=== PATIENT | female | born 1935 | race Caucasian/White ===

== ENCOUNTER 2017-04-22 09:59 | Emergency (ER) | payer MEDICARE, OTHER ==
--- NOTE | 2017-04-22 11:05 | ER PHYSICIAN DOCUMENTATION ---
Physician Documentation [facility] Name:Elayne Rodgers Age:81 yrs Sex:Female :1935 Arrival Date:04/22/2017 Time:09:59 Bed6 Private MD:Kevin Quintero ED, John Disposition: 04/22/17 10:32 Discharged to Home/Self Care. Impression: Back Contusion. - Condition is Good. - Discharge Instructions: CONTUSION, Soft Tissue. - Prescriptions for Hydrocodone- Acetaminophen 5-325 mg Oral - take 1 tablet by ORAL route every 6 hours As needed; 15 tablet. - Medical Reconciliation form form. - Follow up: Kevin Quintero MD; When: 1 week; Reason: Continuance of care. - Problem is new. - Symptoms have improved. HPI: 04/22 10:49 This 81 yrs old Female presents to ER via Private Vehicle with complaints of jm Fall Injury. 10:49 Details of fall: The patient fell from an upright position, while walking. Onset: The jm symptom(s)/episode began/occurred just prior to arrival. Associated injuries: The patient sustained R mid back. Associated signs and symptoms: Pertinent negatives: abdominal pain, chest pain, nausea, Loss of consciousness: the patient experienced no loss of consciousness. Severity of symptoms: in the emergency department the symptoms are unchanged. Pt fell while turning around in he bathroom. She lost her balance and her back hit the toilet. . Historical: - Allergies: All Statins; - Home Meds: 1. gabapentin oral 2. Omeprazole Oral 3. Synthroid Oral 4. PRALUENT 5. aspirin 81 mg oral tab 1 tab once daily 6. Cymbalta oral 7. Zetia Oral - PMHx: Diarrhea (July 30, 2016); CVA; - Tetanus: < 10 years < 10 years. - Ebola Screening: : Patient negative for fever greater than or equal to 101.5 degrees Fahrenheit, and additional compatible Ebola Virus Disease symptoms. Patient denies exposure to infectious person. Patient denies travel to an Ebola-affected area in the 21 days before illness onset. No symptoms or risks identified at this time. . - Immunization history: Pneumococcal vaccine is up to date, Flu Vaccine < 1 year. - Social history: Smoking status: Patient states was never smoker of tobacco. ROS: 10:50 Back: Positive for injury or acute deformity, pain with movement, radiated pain. jm 10:50 MS/extremity: Negative for paresthesias. 10:50 Skin: Negative for ecchymosis, swelling. 10:50 Neuro: Negative for dizziness, headache, numbness, tingling. Exam: 10:50 Constitutional: The patient appears alert, awake, comfortable. jm 10:50 Neck: C-spine: appears grossly normal, Thyroid: appears normal, Trachea: is midline with no obvious abnormalities. 10:50 Respiratory: the patient does not display signs of respiratory distress, Respirations: normal, Breath sounds: are normal. 10:50 Back: pain, that is moderate, of the right subscapular area and right mid back, vertebral tenderness, is not appreciated. Vital Signs: 10:15 BP 152 / 75; Pulse 102; Resp 16; Temp 97.6; Pulse Ox 91% on R/A; Weight 61.69 kg; lc Height 5 ft. 1 in. (154.94 cm); Pain 8/10; 11:00 Pulse 96; Resp 16; Pulse Ox 91% ; Pain 6/10; lc 10:15 Body Mass Index 25.70 (61.69 kg, 154.94 cm) lc Ave Coma Score: 11:03 Eye Response: spontaneous(4). Verbal Response: oriented(5). Motor Response: obeys lc commands(6). Total: 15. Trauma Score (Adult): 11:03 Eye Response: spontaneous(1); Verbal Response: oriented(1); Motor Response: obeys lc commands(2); Systolic BP: > 89 mm Hg(4); Respiratory Rate: 10 to 29 per min(4); Ave Score: 15; Trauma Score: 12 MDM: 10:01 Patient medically screened. jm 10:51 Differential diagnosis: contusion, fracture. Data reviewed: vital signs, nurses notes, radiologic studies, and as a result, I will discharge patient. Test interpretation: by ED physician or midlevel provider: plain radiologic studies. Counseling: I had a detailed discussion with the patient and/or guardian regarding: the historical points, exam findings, and any diagnostic results supporting the discharge/admit diagnosis, radiology results, the need for outpatient follow up, with the patient's primary care provider. Counseling: I had a detailed discussion with the patient and/or guardian regarding: the need for outpatient follow up. ED course: No fx noted. Dx is contusion. 04/22 10:33 Order name: RIBS UNI W/[place] [id number] EDMS 04/22 15:56 Order name: RIBS UNI W/[place] [id number] EDMS Dispensed Medications: No medications were administered Signatures: Taylor Monroy RN RN Twan Burton MD MD jm
--- NOTE | 2017-04-22 11:05 | ER NURSING DOCUMENTATION ---
Nurse's Notes [facility] Name:Elayne Rodgers Age:81 yrs Sex:Female :1935 Arrival Date:04/22/2017 Time:09:59 Bed6 Private MD:Kevin Quintero Diagnosis:Back Contusion Presentation: 04/22 10:02 Acuity: CHAVEZ 2 10:32 Presenting complaint: Patient states: FELL IN BATHROOM AND HIT RIGHT BACK AREA ON THE TOILET. NO LOC OR NECK PAIN. [facility]O [facility] AND [facility] INTACT. NO SOB OR CHEST PAIN. Care prior to arrival: None. Mechanism of Injury: Fall GROUND LEVEL. Trauma event details: Injury occurred in the [facility] Injury occurred at home. Injury occurred April 22, 2017 Injury occurred at 09:00. 10:32 Method Of Arrival: Private Vehicle 10:37 Transition of care: Home. Historical: - Allergies: All Statins; - Home Meds: 1. gabapentin oral 2. Omeprazole Oral 3. Synthroid Oral 4. PRALUENT 5. aspirin 81 mg oral tab 1 tab once daily 6. Cymbalta oral 7. Zetia Oral - PMHx: Diarrhea (July 30, 2016); CVA; - Tetanus: < 10 years < 10 years. - Ebola Screening: : Patient negative for fever greater than or equal to 101.5 degrees Fahrenheit, and additional compatible Ebola Virus Disease symptoms. Patient denies exposure to infectious person. Patient denies travel to an Ebola-affected area in the 21 days before illness onset. No symptoms or risks identified at this time. . - Immunization history: Pneumococcal vaccine is up to date, Flu Vaccine < 1 year. - Social history: Smoking status: Patient states was never smoker of tobacco. Screenin:41 Infectious Disease Risk None. Abuse screen: Denies threats or abuse. Denies injuries lc from another. Nutritional screening: No deficits noted. 11:03 Tuberculosis screening: No symptoms or risk factors identified. Primary Survey: 10:36 Breathing/Chest: Breath sounds: clear, bilaterally. Circulation: Pulses: Skin color: lc pink. Assessment: 10:33 General: Appears in no apparent distress, well groomed, Behavior is cooperative. Pain: Complains of pain in right mid back Pain does not radiate. Pain At worst was 8 out of 10 on a pain scale. Quality of pain is described as throbbing, Pain began 2 hours ago Aggravated by increased activity. Neuro: Level of Consciousness is awake, alert, Oriented to person, place, time, event, Mule Developer are equal bilaterally Moves all extremities. Full function. Respiratory: Airway is patent Respiratory pattern is regular, symmetrical, Breath sounds are clear bilaterally. GI: Abdomen is flat, Abd is soft and non tender X 4 quads. Derm: Skin is pink, warm & dry. Musculoskeletal: Tenderness present in right mid back. 10:59 Reassessment: Patient appears in no apparent distress at this time. VSS, FEELS READY lc FOR DC WITH INSULATION INSTALLER, ENCOURAGED TO HAVE A CAREGIVER TONITE.. Vital Signs: 10:15 BP 152 / 75; Pulse 102; Resp 16; Temp 97.6; Pulse Ox 91% on R/A; Weight 61.69 kg; lc Height 5 ft. 1 in. (154.94 cm); Pain 8/10; 11:00 Pulse 96; Resp 16; Pulse Ox 91% ; Pain 6/10; lc 10:15 Body Mass Index 25.70 (61.69 kg, 154.94 cm) lc [place] Coma Score: 11:03 Eye Response: spontaneous(4). Verbal Response: oriented(5). Motor Response: obeys lc commands(6). Total: 15. Trauma Score (Adult): 11:03 Eye Response: spontaneous(1); Verbal Response: oriented(1); Motor Response: obeys lc commands(2); Systolic BP: > 89 mm Hg(4); Respiratory Rate: 10 to 29 per min(4); [place] Score: 15; Trauma Score: 12 ED Course: 09:59 Patient arrived in ED. ds 09:59 Kevin Quintero MD is Private Physician. ds 10:01 Twan Booth MD is Attending Physician. jm 10:01 Taylor Monroy, LEORA is Primary Nurse. lc 10:02 Triage completed. lc 10:17 Patient moved to radiology. marvin 10:31 Kevin Quintero MD is Referral Physician. jm 10:33 RIBS UNI W/[place] [id number] In Process Unspecified. EDMS 10:38 Patient moved back from radiology. marvin 10:41 Valuables Remains with patient Patient has correct armband on for positive lc identification. Placed in gown. Bed in low position. Call light in reach. Side rails up X2. Adult w/ patient. Ice pack to injury. Turned to left side. Administered Medications: No medications were administered Outcome: 10:32 Discharge ordered by . vasiliy 11:00 Discharged to home via wheelchair, INSULATION INSTALLER AND FRIEND jennifer 11:00 Condition: stable 11:00 Discharge Assessment: Patient awake, alert and oriented x 3. No cognitive and/or functional deficits noted. Patient verbalized understanding of disposition instructions. 11:00 Discharge instructions given to patient, aircraft riveter, Instructed on discharge instructions, follow up and referral plans. medication usage, TAKING DEEP BREATHS AND [facility] Demonstrated understanding of instructions, medications, Prescriptions given X 1. 11:04 Patient left the ED. Signatures: Dispatcher [employer] EDTaylor De La O RN RN lc Srot, Matilda, José Miguel Reg Twan Jimenez MD MD jm Abbott, Donna wong
--- NOTE | 2017-04-22 15:51 | RADIOLOGY REPORT ---
Views of the chest and the right ribs demonstrate the heart, vessels and lungs to be unremarkable. No infiltrate, fluid or pneumothorax is seen. No displaced rib fracture is identified. IMPRESSION: Unremarkable views of the chest and right ribs. No displaced injury is identified. Occult nondisplaced rib fractures are not excluded and may require further evaluation and/or followup for detection. MTDD
== END 2017-04-22 11:05 | disposition home or self-care (01) ==
LOC: ER 09:59
DX: S20.221A Contusion of right back wall of thorax, initial encounter (principal); W01.198A Fall on same level from slipping, tripping and stumbling with subsequent striking against other object, initial encounter; Y92.012 Bathroom of single-family (private) house as the place of occurrence of the external cause; Y93.01 Activity, walking, marching and hiking; Z86.73 Personal history of transient ischemic attack (TIA), and cerebral infarction without residual deficits; Z79.82 Long term (current) use of aspirin; Z79.899 Other long term (current) drug therapy
CPT/HCPCS: 71101; 99283

== ENCOUNTER 2017-04-23 09:22 | Inpatient (IN) | payer MEDICARE, OTHER ==
[2017-04-23] MEDS ORDERED: HOME MEDICATION LIST NEEDED 1 EA EACH MC ONE (10:33)
[2017-04-23 10:36] LABS: BASOPHIL# 0.1 X 10^3uL (0.0-0.1); BASOPHILS 0.6 % (0.0-2.0); EOSINOPHILS 0.8 % (0.0-6.0); EOSINOPHILS# 0.1 X 10^3uL (0.0-0.4); HEMATOCRIT 35.2 % (36.0-48.0); HEMOGLOBIN 11.5 g/dL (12.0-16.0); LYMPHOCYTES 15.4 % (20.0-40.0); LYMPHOCYTES# 1.3 X 10^3uL (0.8-3.8); MEAN CELL VOLUME 72.2 fL (80.0-100.0); MEAN CORPUS. HGB CONCENTRATION 32.8 g/dL (32.0-36.0); MEAN CORPUSCULAR HEMOGLOBIN 23.6 pg (29.0-35.0); MEAN PLATELET VOLUME 7.1 fL (7.4-10.4); MONOCYTES 9.6 % (2.0-10.0); MONOCYTES# 0.8 X 10^3uL (0.2-1.0); NEUTROPHILS 73.6 % (54.0-75.0); NEUTROPHILS# 6.2 X 10^3uL (2.6-6.7); PLATELET COUNT 267 X 10^3uL (130-440); RED BLOOD COUNT 4.87 X 10^6uL (4.20-6.10); WHITE BLOOD COUNT 8.5 X 10^3uL (3.9-10.7)
[2017-04-23] MEDS ORDERED: ONDANSETRON HCL 4 MG/2 ML VIAL IV PRN (10:36)
[2017-04-23] MEDS ORDERED: HYDROmorphone HCL 1 MG/ML SYR ONE (10:37)
[2017-04-23 10:40] LABS: BLOOD UREA NITROGEN 13 mg/dL (7-17); CALCIUM 9.2 mg/dL (8.4-10.2); CHLORIDE 103 mmol/L (98-107); CREATININE 0.6 mg/dL (0.5-1.0); EST GLOMERULAR FILTRATION RATE > 60 mL/min; GLUCOSE 112 mg/dL (70-100); POTASSIUM 3.4 mmol/L (3.5-5.1); SODIUM 140 mmol/L (137-145)
[2017-04-23] MEDS ORDERED: ONDANSETRON HCL 4 MG/2 ML VIAL ONE (10:40)
[2017-04-23 10:51] LABS: RED CELL DISTRIBUTION WIDTH 20.1 % (11.5-14.5)
--- NOTE | 2017-04-23 11:11 | CT REPORT ---
HISTORY: Back pain, fell yesterday COMPARISON: None. TECHNIQUE: This examination was performed using automated exposure control, adjustment of mA or kV according to patient size, and/or use of iterative reconstruction technique. Axial thin section images were obtai calin from L1 through S1 levels, with sagittal and coronal reformations. FINDINGS: The sagittal reconstructed images show minimal posterior subluxation of L1 on L2, and L2 on L3. Mild chronic appearing compression deformity at L4 is noted. No new compression deformity. An acute nondisplaced transverse process fracture on the right at L1 is noted. Nondisplaced spinous p rocess fracture noted at T12 and L1. No other fracture. There is a 12th rib fracture, on the right li kristy chronic. Significant degenerative change particularly from T12 through L2 is noted. There is at least moderate canal stenosis at L1-2 and L2-3. Paraspinal tissues are unremarkable, except for a large hiatal hernia measuring up to 7 cm in diamete r. IMPRESSION: Nondisplaced acute fracture of the right transverse process at L1. Nondisplaced spinous process fract ure at T12 and L1. Nondisplaced fracture of the right posterior 11th and 12th rib, possibly chronic at the 12th rib Significant degenerative change particularly from T12 through L2. Chronic appearing mild compression deformity at L4 is noted. Report called to Dr. Werner. Final Electronic Signature: This report was electronically signed by Braulio Espana MD on 04/23/2017 1 1:09 AM. arnaud /
--- NOTE | 2017-04-23 11:13 | ER NURSING DOCUMENTATION ---
Nurse's Notes [facility] Name:Elayne Rodgers Age:81 yrs Sex:Female :1935 Arrival Date:04/23/2017 Time:: BedMA Private MD:Kevin Quintero Diagnosis:Acute Back Pain-: s/p fall and contusion;Back Contusion;Rib Fracture, Closed, Two-: Right 11th and 12th non-displaced;Lumbar Vertebra Fracture w/o Spinal Cord Injury-: Acute L-1 Right non-displaced Transverse Spinus Process Fracture Presentation: 04/23 09:41 Presenting complaint: Patient states: fell in bathroom yesterday and struck her mid sc1 right back area on the toilet. Pt. had an aide from [employer] and she stated that pt. had had pain all night, not relieved by her pain meds and is having trouble walking due to pain. Transition of care: Home. 09:41 Method Of Arrival: Private Vehicle sc1 09:44 Acuity: CHAVEZ 3 sc1 Triage Assessment: 09:47 General: Appears in no apparent distress, well developed, well nourished, well groomed, sc1 Behavior is cooperative, pleasant. Pain: Complains of pain in lumbar area and right mid back. Historical: - Allergies: All Statins; - Home Meds: 1. gabapentin oral 2. Omeprazole Oral 3. Synthroid Oral 4. PRALUENT 5. aspirin 81 mg oral tab 1 tab once daily 6. Cymbalta oral 7. Zetia Oral 8. Vicodin - PMHx: Diarrhea (July 30, 2016); CVA; Back Contusion (April 22, 2017); - Ebola Screening: : Patient negative for fever greater than or equal to 101.5 degrees Fahrenheit, and additional compatible Ebola Virus Disease symptoms. Patient denies exposure to infectious person. Patient denies travel to an Ebola-affected area in the 21 days before illness onset. No symptoms or risks identified at this time. . - Immunization history: Pneumococcal vaccine is up to date, Flu Vaccine < 1 year. - Social history: Smoking status: Patient states was never smoker of tobacco. Patient/guardian denies using alcohol, street drugs, IV drugs, marijuana. Screenin:57 Infectious Disease Risk None. Abuse screen: Denies threats or abuse. Nutritional sc1 screening: No deficits noted. Vital Signs: 09:48 BP 145 / 90; Pulse 109; Resp 18; Temp 97.9; Pulse Ox 90% on R/A; Weight 61.69 kg; sc1 Height 5 ft. 1 in. (154.94 cm); Pain 8/10; 10:57 BP 144 / 85 (auto/); sc1 10:59 Pulse Ox 96% ; sc1 10:59 Pulse 112; sc1 09:48 Body Mass Index 25.70 (61.69 kg, 154.94 cm) sc1 [place] Coma Score: 10:54 Eye Response: spontaneous(4). Verbal Response: oriented(5). Motor Response: obeys cd commands(6). Total: 15. ED Course: 01:05 Patient moved back from CT. marvin 09:23 Patient arrived in ED. ds 09:23 Kevin Quintero MD is Private Physician. ds 09:39 Clair Martinez, LEORA is Primary Nurse. sc1 09:41 Patient moved to radiology. marvin 09:44 Triage completed. sc1 09:49 Notified ED Physician of patient's arrival and chief complaint. Dr. Werner notified. sc1 Allergy Band Placed Arm band placed on Bed in low position Call Light in Reach Gowned HOB Elevated Side rails up x2. X-ray done. X-ray ordered. 09:58 LUMBOSACRAL SPINE 2-3 VW [id number] In Process Unspecified. EDMS 10:10 Hemant Werner MD is Attending Physician. cd 10:[address] marvin 10:34 Inserted peripheral IV: 20 gauge in right antecubital area and blood collected. Missed sc1 attempts: 20 gauge X 1 in right antecubital area, Bleeding controlled, band aid applied, catheter tip intact. 10:35 Oxygen Oxygen administration via nasal cannula @ 2L/min. sc1 10:38 Kevin Quintero MD is Admitting Physician. cd 10:51 CAT SCAN; LUMBAR W/O CON [id number] In Process Unspecified. EDMS 10:52 Patient moved back from [address]. marvin Administered Medications: 10:33 Drug: Zofran 4 mg; Route: IVP; Infused Over: 2 mins; Site: right antecubital; sc1 11:04 Follow up: Response: No adverse reaction sc1 10:33 Drug: Dilaudid 0.25 mg; Route: IVP; Site: right antecubital; id1 11:03 Follow up: Response: No adverse reaction; Pain is decreased sc1 Outcome: 10:41 Decision to Admit by Provider. 11:12 Patient left the ED. id1 Signatures: Dispatcher [employer] Clair Castellon RN RN sc1 Matilda Oliveros, Hemant Rowland MD MD cd Abbott, Laura lea
--- NOTE | 2017-04-23 11:13 | ER PHYSICIAN DOCUMENTATION ---
Physician Documentation [facility] Name:Elayne Rodgers Age:81 yrs Sex:Female :1935 Arrival Date:04/23/2017 Time:: BedCT Private MD:Kevin Quintero ED, Chris Disposition: 04/23/17 10:41 Admit ordered for Kevin Quintero. Preliminary diagnosis are Acute Back Pain - : s/p fall and contusion, Back Contusion, Rib Fracture, Closed, Two - : Right 11th and 12th non-displaced, Lumbar Vertebra Fracture w/o Spinal Cord Injury - : Acute L-1 Right non-displaced Transverse Spinus Process Fracture. - Bed requested for Medical/Surgical. - Condition is Fair. - Problem is new. - Symptoms are unchanged. 23 HR OBS Yes HPI: 04/23 10:50 This 81 yrs old Female presents to ER via Private Vehicle with complaints of cd Fall Injury. 10:50 Details of fall: The patient fell from an upright position, while standing. Onset: The cd symptom(s)/episode began/occurred acutely, yesterday. Associated injuries: The patient sustained upper back injury, contusion, decreased range of motion, pain, pain with movement. Associated signs and symptoms: Pertinent negatives: abdominal pain, chest pain, incontinence, nausea, numbness, pelvic pain, shortness of breath, tingling, vomiting, Loss of consciousness: the patient experienced no loss of consciousness. Severity of symptoms: At their worst the symptoms were severe, a " 8" out of "10", in the emergency department the symptoms are unchanged. The patient has been recently seen at the [facility] Emergency Department, yesterday, by Dr. Twan Booth. Right Rib Series done and no rib fractures identified. Patient has had continued severe pain, lives alone, has difficulty ambulating because of pain and is unable to care for herself at home.. Historical: - Allergies: All Statins; - Home Meds: 1. gabapentin oral 2. Omeprazole Oral 3. Synthroid Oral 4. PRALUENT 5. aspirin 81 mg oral tab 1 tab once daily 6. Cymbalta oral 7. Zetia Oral 8. Vicodin - PMHx: Diarrhea (July 30, 2016); CVA; Back Contusion (April 22, 2017); - Ebola Screening: : Patient negative for fever greater than or equal to 101.5 degrees Fahrenheit, and additional compatible Ebola Virus Disease symptoms. Patient denies exposure to infectious person. Patient denies travel to an Ebola-affected area in the 21 days before illness onset. No symptoms or risks identified at this time. . - Immunization history: Pneumococcal vaccine is up to date, Flu Vaccine < 1 year. - Social history: Smoking status: Patient states was never smoker of tobacco. Patient/guardian denies using alcohol, street drugs, IV drugs, marijuana. ROS: 10:53 ENT: Negative for injury, pain, epistaxis and discharge. cd Neck: Negative for injury, pain, stiffness and swelling. Cardiovascular: Negative for chest pain, palpitations, edema and pleuritic pain. Respiratory: Negative for shortness of breath, dyspnea on exertion, cough, sputum production, wheezing, hemoptysis and pleuritic chest pain. Abdomen/GI: Negative for abdominal pain, nausea, vomiting, diarrhea, constipation, distension, melena, hematochezia and hematemesis. Skin: Negative for injury, rash, itching and discoloration. 10:53 Neuro: Negative for headache, weakness, numbness, tingling, and seizure. cd 10:53 Constitutional: Negative for poor PO intake. 10:53 Back: Positive for pain at rest, pain with movement, Negative for radiated pain. 10:53 MS/extremity: Negative for acute changes, injury or acute deformity. 10:53 All other systems are negative. Exam: Head/Face: Normocephalic, atraumatic. ENT: Nares patent. No nasal discharge, no septal abnormalities noted. Tympanic membranes are normal and external auditory canals are clear. Oropharynx with no redness, swelling, or masses, exudates, or evidence of obstruction, uvula midline. Mucous membranes moist. Neck: Trachea midline, no thyromegaly or masses palpated, and no cervical lymphadenopathy. Supple, full range of motion without nuchal rigidity, or vertebral point tenderness. No Meningismus. Chest/axilla: Normal chest wall appearance and motion. Nontender with no deformity. No lesions are appreciated. Cardiovascular: Regular rate and rhythm with a normal S1 and S2. No gallops, murmurs, or rubs. Normal PMI, no JVD. No pulse deficits. Respiratory: Lungs have equal breath sounds bilaterally, clear to auscultation and percussion. No rales, rhonchi or wheezes noted. No increased work of breathing, no retractions or nasal flaring. Abdomen/GI: Soft, non-tender, with normal bowel sounds. No distension or tympany. No guarding or rebound. No evidence of tenderness throughout. Skin: Warm, dry with normal turgor. Normal color with no rashes, no lesions, and no evidence of cellulitis. MS/ Extremity: Pulses equal, no cyanosis. Neurovascular intact. Full, normal range of motion. 10:54 Neuro: Awake and alert, GCS 15, oriented to person, place, time, and situation. cd Cranial nerves II-XII grossly intact. Motor strength 5/5 in all extremities. Sensory grossly intact. Cerebellar exam normal. Normal gait. 10:54 Constitutional: The patient appears alert, awake, non-diaphoretic, non-toxic, well developed, well nourished, anxious, in obvious distress, moderately distressed. 10:54 Back: pain, that is severe, of the right mid back, ROM is painful, with all movement, normal spinal alignment noted, CVA tenderness, that is mild, is noted on the right, vertebral tenderness, is appreciated at T11, T12, L1, L2 and L3. 10:54 Musculoskeletal/extremity: Extremities: all appear grossly normal, with no appreciated pain with palpation, ROM: no acute changes, Circulation is intact in all extremities. 10:54 Neuro: Orientation: is normal, Mentation: is normal, Cranial nerves: CN II- XII are normal as tested, Motor: is normal, Sensation: is normal. Vital Signs: 09:48 BP 145 / 90; Pulse 109; Resp 18; Temp 97.9; Pulse Ox 90% on R/A; Weight 61.69 kg; sc1 Height 5 ft. 1 in. (154.94 cm); Pain 8/10; 10:57 BP 144 / 85 (auto/); sc1 10:59 Pulse Ox 96% ; sc1 10:59 Pulse 112; sc1 09:48 Body Mass Index 25.70 (61.69 kg, 154.94 cm) ny1 Clarence Coma Score: 10:54 Eye Response: spontaneous(4). Verbal Response: oriented(5). Motor Response: obeys cd commands(6). Total: 15. MDM: 09:45 Data interpreted: Pulse oximetry: on room air is 90 %. Interpretation: normal. cd 09:50 Differential diagnosis: contusion, fracture, sprain, strain. cd 10:10 Patient medically screened. cd 10:30 Data reviewed: vital signs, nurses notes, old medical records, radiologic studies, cd plain films, and as a result, I will admit patient, prescribe pain medication, Dilaudid. 10:40 Physician consultation: Kevin Quintero MD was called at 10:32, was contacted at 10:32, cd regarding admission, to the floor, consult, patient's condition, need to evaluate the patient as soon as possible, and will see patient in inpatient room, shortly, later today. 10:55 Medication response: The patient's symptoms have improved, Dilaudid. cd 10:59 Counseling: I had a detailed discussion with the patient and/or guardian regarding: the cd historical points, exam findings, and any diagnostic results supporting the discharge/admit diagnosis, lab results, radiology results, the need for further work-up and treatment in the hospital. Response to treatment: the patient's symptoms have markedly improved after treatment, and as a result, I will admit patient. 04/23 10:43 Order name: BASIC METABOLIC PANEL; Complete Time: 10:58 EDW[facility] 04/23 10:56 Interpretation: Normal Except: POTASSIUM 3.4; Hypokalemia. 04/23 10:52 Order name: CBC AUTO DIF, MDIF/RMOR IF IND; Complete Time: 10:58 EDMS 04/23 10:56 Interpretation: Normal Except: HEMOGLOBIN 11.5; HEMATOCRIT 35.2; Anemia. 04/23 20:31 Order name: UA W/ MICRO -CULTURE IF IND ED[facility] 04/23 09:58 Order name: LUMBOSACRAL SPINE 2-3 VW [id number]; Complete Time: 10:58 EDW[facility] 04/23 10:57 Interpretation: Abnormal: Severe DDD, spurring, disc space narrowing and old Vertebral cd Spine fracture...awaiting Radiologist reading. 04/23 10:51 Order name: CAT SCAN; LUMBAR W/O CON [id number] ED[facility] 04/23 10:57 Interpretation: Abnormal: Severe DDD, spurring, disc space narrowing and old Vertebral cd Spine fracture...awaiting Radiologist reading. 04/23 17:48 Order name: LUMBOSACRAL SPINE 2-3 VW [id number] EDMS 04/23 10:16 Order name: Iv Saline Lock; Complete Time: 10: cd 04/23 10:34 Order name: Oxygen; Complete Time: 10:35 [facility] 04/23 10:34 Order name: Oxygen Sats; Complete Time: 10:35 [facility] Dispensed Medications: 10:33 Drug: Zofran 4 mg; Route: IVP; Infused Over: 2 mins; Site: right antecubital; [facility] 11:04 Follow up: Response: No adverse reaction [facility] 10:33 Drug: Dilaudid 0.25 mg; Route: IVP; Site: right antecubital; [facility] 11:03 Follow up: Response: No adverse reaction; Pain is decreased [facility] Signatures: Aidee Beth RN RN st Campbell, Sandy, RN RN [facility] Hemant Werner MD MD
--- NOTE | 2017-04-23 14:26 | RADIOLOGY REPORT ---
Four views of the lumbar spine are compared with prior films dated 12/17/2013. A 25% anterior compression deformity of L4 is old and unchanged. No new displaced fracture is identified. Marked degenerative disk disease is seen at T12-L1 and L1-L2, as evidenced by narrowing and osteophyte formation. There is associated approximately 5 mm of posterior subluxation of L1 on L2. Moderate disk space narrowing is seen at L2-3. The remainder of the disk spaces are maintained. The adjacent soft tissues appear unremarkable. IMPRESSION: Extensive chronic changes as described. No acute displaced injury is identified. Please see CT scan report of the same date. [facility]
[2017-04-23] MEDS: POLYETHYLENE GLYCOL 3350 17 GM POWD.PACK PO SCH (14:43)
[2017-04-23] MEDS: CYCLOBENZAPRINE HCL 10 MG TABLET PO PRN (14:46)
[2017-04-23] MEDS: HYDROmorphone HCL 1 MG/ML SYR IV PRN ×3 (14:46→23:19)
[2017-04-23] MEDS: PANTOPRAZOLE 40 MG TABLET PO SCH (18:51)
[2017-04-23 20:19] LABS: URINE MUCUS NONE SEEN (Up to 25%); URINE RBC NONE SEEN (0-5/hpf); URINE SQUAMOUS EPITHELIAL CELL NONE SEEN (<= 15/hpf); URINE WBC NONE SEEN (0-4/hpf)
[2017-04-23 20:29] LABS: URINE APPEARANCE CLOUDY; URINE COLOR YELLOW; URINE LEUKOCYTE ESTERASE TRACE (NEGATIVE); URINE NITRITE NEGATIVE (NEGATIVE)
[2017-04-23 20:30] LABS: URINE AMORPHOUS SEDIMENT >50%/lpf (Up to 25%); URINE BACTERIA NONE SEEN (<10/hpf); URINE BILIRUBIN NEGATIVE (NEGATIVE); URINE BLOOD TRACE (NEGATIVE); URINE GLUCOSE NORMAL (NEGATIVE); URINE KETONE NEGATIVE (NEGATIVE); URINE PROTEIN 30mg/dL (1+) (NEG - TRACE); URINE UROBILINOGEN 0.2mg/dL (Normal) (NEG-1mg/dL)
--- NOTE | 2017-04-23 21:16 | HISTORY & PHYSICAL ---
DATE OF ADMISSION: 04/23/17 ATTENDING PHYSICIAN: Kevin Quintero MD HISTORY OF PRESENT ILLNESS: At around 8:00 a.m. yesterday morning, this patient lost her balance in her bathroom and fell with her right posterior lateral chest against the toilet. She did not lose consciousness. She was brought to the Emergency Room that morning for evaluation. Plain x-rays failed to reveal any fractures to explain her right posterior lateral chest wall pain and low back pain. She was sent home with a trial of pain medications, but slept poorly and returned to the Emergency Room for re-evaluation. EMERGENCY ROOM COURSE TODAY: Showed a nondisplaced fracture of the transverse process of the L1 vertebra on the right. She also has 2 posterior rib fractures involving the right 11th and 12th rib. The 12th rib fracture appears that it may be chronic, although the patient does not have any history of recent falls other than yesterday morning. PAST MEDICAL HISTORY 1. Osteopenia. 2. Nocturnal hypoxia. 3. Gastroesophageal reflux disease. 4. Hypertension. 5. Hypothyroidism. 6. Vitamin D deficiency. 7. Hiatal hernia. 8. Anxiety disorder. 9. Spinal stenosis, lumbar. 10. Spinal stenosis, cervical with a history of previous surgery for this. 11. Recurrent major depression. 12. Familial hypercholesteremia. 13. Chronic lumbar radiculopathy, right worse than left. 14. Hyperreflexia of the legs, right worse than left, probably related to her previous spinal stenosis. 15. History of a ischemic cerebrovascular accident 10/2015. 16. Hyperglycemia. MEDICATIONS ON ADMISSION Praluent 75 mg/mL 1 mL sub.q every 2 weeks. Aspirin 81 mg enteric coated daily. Vitamin D3 1000 units daily. Duloxetine 30 mg daily. Zetia 10 mg daily. Gabapentin 300 mg b.i.d. Glucosamine 500 mg t.i.d. Levothyroxine 88 mcg daily. Omeprazole 20 mg twice daily. Tizanidine 2 mg b.i.d. PRN for muscle spasms. ALLERGIES: All statins cause myalgias. REVIEW OF SYSTEMS GENERAL: Fatigue, no fever or chills. RESPIRATORY: No cough or shortness of breath. Does have chest wall pain in the posterior lateral right lower side. CARDIOVASCULAR: Chest wall pain. No palpitations. GI: No abdominal pain, current constipation or diarrhea. : No dysuria. Has some chronic frequency. MUSCULOSKELETAL: Chest wall pain as described above. Some chronic low back pain. Walks slowly with a walker typically, but is having trouble doing any ambulation now. PHYSICAL EXAMINATION VITAL SIGNS: On admission included a temperature of 36.9, pulse 106, blood pressure 130/73, respiratory rate 20, O2 saturation was 99% on 2 liters. GENERAL: Alert and oriented x3 and a little groggy when I evaluated her at lunchtime on 04/23/17. HEENT: Oral mucosa was slightly dry. LUNGS: Clear with distant breath sounds. . HEART: Regular rate and rhythm with no murmur. ABDOMEN: Soft, nontender. CHEST WALL: Posteriorly and laterally on the inferior right had moderate tenderness. The right lower costosternal junction was also mildly tender. EXTREMITIES: No edema. LABORATORY DATA: Her white count was 8,500 with 74% neutrophils and 15% lymphs. Hemoglobin 11.5, hematocrit 35.2 and platelets at 267,000. Her sodium was 140. Potassium 3.4. Chloride 103, CO2 24, creatinine 0.6 and random glucose was 112. IMAGING: CT scan of the spine without contrast showed the findings noted in the initial history paragraph. She also has some chronic degenerative changes throughout but most pronounced in the T12-L2 area with a chronic mild depression component of L4. Her lumbar spine x-ray showed extensive chronic changes but the transverse process fracture was not visible. IMPRESSION 1. Fall at home with a nondisplaced fracture of the right L1 transverse process of the L1 vertebrae and the posterior 11th and 12th right ribs. 2. Previous cerebrovascular accident with some left hemiparesis that did not fully recover. 3. Some hyperreflexia on the right related to her previous cervical spinal stenosis and on the left related to her cerebrovascular accident. High risk for fall recurrence. PLAN: The patient is unable to care for herself at home and is requiring some IV medication for pain control currently. Given her previous stroke, and the fact that she lives alone, she needs to be cared for as an inpatient for now. The hope is that she will get enough improvement within a couple of days to return home where she has daytime but not nighttime caregivers. She will work with Physical Therapy and Occupational Therapy for this goal. I will try her on extended release Tylenol regularly for pain, since she has had some delirium in the past on stronger pain medications. In the Emergency Department, though, she tolerated Dilaudid okay. I will also order some PRN Oxycodone to use as needed, but I am hopeful that she can get off of opioids. She is a high fall risk at baseline because of her previous stroke. CJ
[2017-04-23] MEDS: DOCUSATE SODIUM 100 MG CAPSULE PO SCH (21:37)
[2017-04-24] MEDS: ACETAMINOPHEN ER 650 MG TAB.SR.8HR PO PRN ×2 (01:05→20:12)
[2017-04-24] MEDS: IBUPROFEN 400 MG TABLET PO PRN ×2 (01:41→16:17)
[2017-04-24] MEDS: CYCLOBENZAPRINE HCL 10 MG TABLET PO PRN ×3 (01:42→20:12)
[2017-04-24] MEDS: PANTOPRAZOLE 40 MG TABLET PO SCH ×2 (05:49→16:21)
[2017-04-24] MEDS: LEVOTHYROXINE 112 MCG TABLET PO SCH (08:31)
[2017-04-24] MEDS: DOCUSATE SODIUM 100 MG CAPSULE PO SCH ×2 (08:31→20:12)
[2017-04-24] MEDS: POLYETHYLENE GLYCOL 3350 17 GM POWD.PACK PO SCH (08:31)
[2017-04-24] MEDS: DULOXETINE 30 MG CAPSULE.DR PO SCH (08:31)
[2017-04-24] MEDS: HYDROmorphone HCL 1 MG/ML SYR IV PRN (10:43)
--- NOTE | 2017-04-24 21:19 | PROGRESS NOTE: IM APSO ---
Assessment and Plan - Date of Encounter Date of Encounter: 04/24/17 (1) Fracture of transverse process of lumbar vertebra Status: Acute Assessment and plan: Still requiring dilaudid IV. Oxycodone not adequate. Working w/ P.T. Current Visit: Yes (2) Right rib fracture Status: Acute Assessment and plan: R 11th and 12th posteriorly. Still needing IV pain meds. Increased dose of Flexeril. No delirium, but at risk. Current Visit: Yes (3) Ribs, multiple fractures Status: Acute Current Visit: Yes (4) Fall at home Status: Acute Assessment and plan: Lost balance in the BR. Current Visit: Yes (5) History of CVA with residual deficit Status: Acute Assessment and plan: Spasticity of L leg. Movement even more challenging now due to pain. Current Visit: Yes - Time Spent With Patient Total time spent with greater than 50% in coordination of care (as documented) at patient's floor/unit and/or counseling patient: Estimated anticipated discharge: ??? Await P.T.'s advise. IM: PN Subjective General: fatigue, no anxiety, no depression, no confusion, no fever, no chills HEENT: no headache Cardiovascular: no chest pain Respiratory: no cough Gastrointestinal: constipation, no abdominal pain Genitourinary: no incontinence, no dysuria Musculoskeletal: no swelling Neurological: no numbness, no tingling, no limb weakness IM: PN Objective Exam - I&O/Vital Signs I&O: Intake & Output 04/24/17 04/24/17 04/24/17 05:59 13:59 21:59 Intake Total 350 1240 Balance 350 1240 Weight 61.689 kg 59.5 kg Intake: Oral 350 1240 Other: Urine Appearance Clear Clear Urine Color Straw Yellow Voiding Method Bedpan Bedpan # Voids 3 Vital Signs: Last Vital Signs Temp 36.7 C 04/24/17 18:32 Pulse 117 H 04/24/17 18:32 Resp 18 04/24/17 19:43 BP 96/66 04/24/17 18:32 Pulse Ox 92 04/24/17 19:43 Oxygen Flow Rate 2 Oxygen Delivery Method Nasal Cannula - Constitutional General appearance: Present: average body habitus. Absent: acute distress - Head Head exam: Present: atraumatic - Eye Eye exam: Present: EOMI, PERRL - ENT ENT exam: Present: mucous membranes dry - Neck Neck exam: Absent: tenderness - Respiratory Respiratory exam: Present: clear - Cardiovascular Cardiovascular exam: Present: RRR. Absent: systolic murmur - GI/Abdominal GI/Abdominal exam: Present: hypoactive bowel sounds, soft. Absent: tenderness - Back Exam Back exam: Present: CVA tenderness (R), vertebral tenderness (at L1) - Neurological Exam Neurological exam: Absent: oriented X3 - Psychiatric Psychiatric exam: Absent: anxious, depressed - Allied Health Notes Allied health notes reviewed: nursing - Lab Labs: Laboratory Last Values WBC 8.5 X 10^3uL (3.9-10.7) 04/23/17 10:20 RBC 4.87 X 10^6uL (4.20-6.10) 04/23/17 10:20 Hgb 11.5 g/dL (12.0-16.0) L 04/23/17 10:20 Hct 35.2 % (36.0-48.0) L 04/23/17 10:20 MCV 72.2 fL (80.0-100.0) L 04/23/17 10:20 MCH 23.6 pg (29.0-35.0) L 04/23/17 10:20 MCHC 32.8 g/dL (32.0-36.0) 04/23/17 10:20 RDW 20.1 % (11.5-14.5) H D 04/23/17 10:20 Plt Count 267 X 10^3uL (130-440) 04/23/17 10:20 MPV 7.1 fL (7.4-10.4) L 04/23/17 10:20 Neutrophils % 73.6 % (54.0-75.0) 04/23/17 10:20 Lymphocytes % 15.4 % (20.0-40.0) L 04/23/17 10:20 Eosinophils % 0.8 % (0.0-6.0) 04/23/17 10:20 Basophils % 0.6 % (0.0-2.0) 04/23/17 10:20 Neutrophils # 6.2 X 10^3uL (2.6-6.7) 04/23/17 10:20 Lymphocytes # 1.3 X 10^3uL (0.8-3.8) 04/23/17 10:20 Monocytes 9.6 % (2.0-10.0) 04/23/17 10:20 Monocytes # 0.8 X 10^3uL (0.2-1.0) 04/23/17 10:20 Eosinophils # 0.1 X 10^3uL (0.0-0.4) 04/23/17 10:20 Basophils # 0.1 X 10^3uL (0.0-0.1) 04/23/17 10:20 Sodium 140 mmol/L (137-145) 04/23/17 10:20 Potassium 3.4 mmol/L (3.5-5.1) L 04/23/17 10:20 Chloride 103 mmol/L (98-107) 04/23/17 10:20 Carbon Dioxide 24 mmol/L (22-30) 04/23/17 10:20 BUN 13 mg/dL (7-17) 04/23/17 10:20 Creatinine 0.6 mg/dL (0.5-1.0) 04/23/17 10:20 GFR Calculation > 60 mL/min 04/23/17 10:20 Glucose 112 mg/dL (70-100) H 04/23/17 10:20 Calcium 9.2 mg/dL (8.4-10.2) 04/23/17 10:20 Urine Color Yellow 04/23/17 11:19 Urine Appearance Cloudy A 04/23/17 11:19 Urine pH 6.0 (5-7) 04/23/17 11:19 Ur Specific [place] 1.030 (0.001-1.035) 04/23/17 11:19 Urine Protein 30mg/dl (1+) (NEG - TRACE) A 04/23/17 11:19 Urine Ketones Negative (NEGATIVE) 04/23/17 11:19 Urine Blood Trace (NEGATIVE) A 04/23/17 11:19 Urine Nitrate Negative (NEGATIVE) 04/23/17 11:19 Urine Bilirubin Negative (NEGATIVE) 04/23/17 11:19 Urine Urobilinogen 0.2mg/dl (normal) (NEG-1mg/dL) 04/23/17 11:19 Ur Leukocyte Esterase Trace (NEGATIVE) 04/23/17 11:19 Urine RBC None seen (0-5/hpf) 04/23/17 11:19 Urine WBC None seen (0-4/hpf) 04/23/17 11:19 Ur Squamous Epith Cells None seen (<= 15/hpf) 04/23/17 11:19 Amorphous Sediment >50%/lpf (Up to 25%) A 04/23/17 11:19 Urine Bacteria None seen (<10/hpf) 04/23/17 11:19 Urine Mucus None seen (Up to 25%) 04/23/17 11:19 Urine Glucose Normal (NEGATIVE) 04/23/17 11:19 Quality Questions - VTE Prophylaxis Assessment Patient at risk for venous thromboembolism?: Yes VTE Risk Level: High Risk Pharmaceutical VTE prophylaxis contraindication reason: N/A- VTE prophylaxsis ordered Mechanical VTE prophylaxis contraindication reason: N/A- VTE prophylaxsis ordered (1) Fracture of transverse process of lumbar vertebra Qualifiers: Encounter type: subsequent encounter Fracture healing: with routine healing Qualified Code(s): S32.008D - Other fracture of unspecified lumbar vertebra, subsequent encounter for fracture with routine healing
[2017-04-25] MEDS: PANTOPRAZOLE 40 MG TABLET PO SCH ×2 (05:35→17:23)
[2017-04-25] MEDS: CYCLOBENZAPRINE HCL 10 MG TABLET PO PRN ×2 (05:35→15:18)
--- NOTE | 2017-04-25 08:42 | PROGRESS NOTE: IM APSO ---
Assessment and Plan - Date of Encounter Date of Encounter: 04/25/17 (1) Fracture of transverse process of lumbar vertebra Status: Acute Assessment and plan: She required dilaudid IV yesterday. Last night did okay on oxycodone 5 mg + cyclobenzaprine 10 mg. Working w/ P.T. Current Visit: Yes (2) Ribs, multiple fractures Status: Acute Assessment and plan: R 11th and 12th posteriorly. Still needing opiods. No delirium, but at risk. Current Visit: Yes (3) Fall at home Status: Acute Assessment and plan: Lost balance in the BR. Her baseline gait is very slow with a tendency for intoeing. Her gait has worsened since her fall with rib and L1 fracture. PT and OT are recommending swing bed. We'll plan on transferring her to that tomorrow. Current Visit: Yes (4) History of CVA with residual deficit Status: Acute Assessment and plan: Chronic spasticity of L legfrom the CVA. She has some chronic spasticity in the right leg from cervical stenosis which was operated for 5 years ago. Movement even more challenging now due to pain. Current Visit: Yes - Time Spent With Patient Total time spent with greater than 50% in coordination of care (as documented) at patient's floor/unit and/or counseling patient: Estimated anticipated discharge: transfer to swing bed 04/26/17 IM: PN Subjective General: fatigue (but slept well.), no anxiety, no depression, no confusion, no fever, no chills HEENT: no headache Cardiovascular: no chest pain Respiratory: no cough Gastrointestinal: constipation, no abdominal pain Genitourinary: no incontinence, no dysuria Musculoskeletal: pain (low back and right posterior ribs), no swelling Neurological: no numbness, no tingling, no limb weakness IM: PN Objective Exam - I&O/Vital Signs I&O: Intake & Output 04/24/17 04/25/17 04/25/17 21:59 05:59 13:59 Intake Total 1240 Output Total 400 Balance 1240 -400 Weight 59.5 kg 62 kg Intake: Oral 1240 Output: Urine 400 Other: Urine Appearance Clear Clear Urine Color Yellow Yellow Voiding Method Bedpan Bedpan # Voids 3 2 Vital Signs: Last Vital Signs Temp 36.6 C 04/25/17 06:43 Pulse 96 H 04/25/17 06:43 Resp 14 05/26/17 06:43 BP 123/54 04/25/17 06:43 Pulse Ox 93 04/25/17 06:43 Oxygen Flow Rate 2 Oxygen Delivery Method Nasal Cannula - Constitutional General appearance: Present: average body habitus. Absent: acute distress - Head Head exam: Present: atraumatic - ENT ENT exam: Present: mucous membranes dry - Neck Neck exam: Absent: tenderness - Respiratory Respiratory exam: Present: clear - Cardiovascular Cardiovascular exam: Present: RRR. Absent: systolic murmur - GI/Abdominal GI/Abdominal exam: Present: hypoactive bowel sounds, soft. Absent: tenderness - Back Exam Back exam: Present: CVA tenderness (R) (mild to moderate), vertebral tenderness (mild to moderate at L1) - Neurological Exam Neurological exam: Absent: oriented X3 - Psychiatric Psychiatric exam: Absent: anxious, depressed - Allied Health Notes Allied health notes reviewed: nursing - Lab Labs: Laboratory Last Values WBC 8.5 X 10^3uL (3.9-10.7) 04/23/17 10:20 RBC 4.87 X 10^6uL (4.20-6.10) 04/23/17 10:20 Hgb 11.5 g/dL (12.0-16.0) L 04/23/17 10:20 Hct 35.2 % (36.0-48.0) L 04/23/17 10:20 MCV 72.2 fL (80.0-100.0) L 04/23/17 10:20 MCH 23.6 pg (29.0-35.0) L 04/23/17 10:20 MCHC 32.8 g/dL (32.0-36.0) 04/23/17 10:20 RDW 20.1 % (11.5-14.5) H D 04/23/17 10:20 Plt Count 267 X 10^3uL (130-440) 04/23/17 10:20 MPV 7.1 fL (7.4-10.4) L 04/23/17 10:20 Neutrophils % 73.6 % (54.0-75.0) 04/23/17 10:20 Lymphocytes % 15.4 % (20.0-40.0) L 04/23/17 10:20 Eosinophils % 0.8 % (0.0-6.0) 04/23/17 10:20 Basophils % 0.6 % (0.0-2.0) 04/23/17 10:20 Neutrophils # 6.2 X 10^3uL (2.6-6.7) 04/23/17 10:20 Lymphocytes # 1.3 X 10^3uL (0.8-3.8) 04/23/17 10:20 Monocytes 9.6 % (2.0-10.0) 04/23/17 10:20 Monocytes # 0.8 X 10^3uL (0.2-1.0) 04/23/17 10:20 Eosinophils # 0.1 X 10^3uL (0.0-0.4) 04/23/17 10:20 Basophils # 0.1 X 10^3uL (0.0-0.1) 04/23/17 10:20 Sodium 140 mmol/L (137-145) 04/23/17 10:20 Potassium 3.4 mmol/L (3.5-5.1) L 04/23/17 10:20 Chloride 103 mmol/L (98-107) 04/23/17 10:20 Carbon Dioxide 24 mmol/L (22-30) 04/23/17 10:20 BUN 13 mg/dL (7-17) 04/23/17 10:20 Creatinine 0.6 mg/dL (0.5-1.0) 04/23/17 10:20 GFR Calculation > 60 mL/min 04/23/17 10:20 Glucose 112 mg/dL (70-100) H 04/23/17 10:20 Calcium 9.2 mg/dL (8.4-10.2) 04/23/17 10:20 Urine Color Yellow 04/23/17 11:19 Urine Appearance Cloudy A 04/23/17 11:19 Urine pH 6.0 (5-7) 04/23/17 11:19 Ur Specific [place] 1.030 (0.001-1.035) 04/23/17 11:19 Urine Protein 30mg/dl (1+) (NEG - TRACE) A 04/23/17 11:19 Urine Ketones Negative (NEGATIVE) 04/23/17 11:19 Urine Blood Trace (NEGATIVE) A 04/23/17 11:19 Urine Nitrate Negative (NEGATIVE) 04/23/17 11:19 Urine Bilirubin Negative (NEGATIVE) 04/23/17 11:19 Urine Urobilinogen 0.2mg/dl (normal) (NEG-1mg/dL) 04/23/17 11:19 Ur Leukocyte Esterase Trace (NEGATIVE) 04/23/17 11:19 Urine RBC None seen (0-5/hpf) 04/23/17 11:19 Urine WBC None seen (0-4/hpf) 04/23/17 11:19 Ur Squamous Epith Cells None seen (<= 15/hpf) 04/23/17 11:19 Amorphous Sediment >50%/lpf (Up to 25%) A 04/23/17 11:19 Urine Bacteria None seen (<10/hpf) 04/23/17 11:19 Urine Mucus None seen (Up to 25%) 04/23/17 11:19 Urine Glucose Normal (NEGATIVE) 04/23/17 11:19 (1) Fracture of transverse process of lumbar vertebra Qualifiers: Encounter type: subsequent encounter Fracture healing: with routine healing Qualified Code(s): S32.008D - Other fracture of unspecified lumbar vertebra, subsequent encounter for fracture with routine healing
[2017-04-25] MEDS: LEVOTHYROXINE 112 MCG TABLET PO SCH (09:05)
[2017-04-25] MEDS: ENOXAPARIN SODIUM 30 MG/0.3 ML SYR SUBCUT SCH (09:05)
[2017-04-25] MEDS: POLYETHYLENE GLYCOL 3350 17 GM POWD.PACK PO SCH (09:05)
[2017-04-25] MEDS: DULOXETINE 30 MG CAPSULE.DR PO SCH (09:05)
[2017-04-25] MEDS: DOCUSATE SODIUM 100 MG CAPSULE PO SCH ×2 (09:05→20:22)
[2017-04-25] MEDS: IBUPROFEN 400 MG TABLET PO PRN (15:22)
[2017-04-26] MEDS: PANTOPRAZOLE 40 MG TABLET PO SCH ×2 (06:35→17:39)
--- NOTE | 2017-04-26 08:30 | PROGRESS NOTE: IM APSO ---
Assessment and Plan - Date of Encounter Date of Encounter: 04/26/17 (1) Fall at home Status: Acute Current Visit: Yes (2) Fracture of transverse process of lumbar vertebra Status: Acute Assessment and plan: improving pain control, used gabapentin at home with benefit for chronic pain and resuming. Add miacalcin for OSP as well may provide some analgesia Current Visit: Yes (3) History of CVA with residual deficit Status: Chronic Current Visit: Yes (4) Ribs, multiple fractures Status: Acute Current Visit: Yes (5) Weakness generalized Status: Chronic Current Visit: No (6) Hyperlipidemia Status: Chronic Current Visit: No (7) Hypertension Status: Chronic Current Visit: No (8) Hypothyroidism (acquired) Status: Chronic Assessment and plan: and compensated Current Visit: No - Time Spent With Patient Total time spent with greater than 50% in coordination of care (as documented) at patient's floor/unit and/or counseling patient: 16-24 minutes (discussed w/ Dr Quintero, request swingbed today) Estimated anticipated discharge: transfer to swing bed 04/26/17 IM: PN Subjective General: fatigue (but slept well.), no anxiety, no depression, no confusion, no fever, no chills HEENT: no headache Cardiovascular: no chest pain Respiratory: no cough Gastrointestinal: constipation, no abdominal pain Genitourinary: no incontinence, no dysuria Musculoskeletal: pain (low back and right posterior ribs, cramping in quality but able to position self in bed and ambulate some), no swelling Neurological: no numbness, no tingling, no limb weakness IM: PN Objective Exam - I&O/Vital Signs I&O: Intake & Output 04/25/17 04/26/17 04/26/17 21:59 05:59 13:59 Intake Total 1150 250 Output Total 700 450 Balance 450 -200 Weight 62 kg Intake: Oral 1150 250 Output: Urine 700 450 Other: Urine Appearance Clear Clear Urine Color Yellow Yellow Voiding Method Bedside Commode Incontinent # Voids 3 Vital Signs: Last Vital Signs Temp 36.9 C 04/26/17 06:19 Pulse 102 H 04/26/17 06:19 Resp 16 04/26/17 06:19 BP 129/65 04/26/17 06:19 Pulse Ox 92 04/26/17 06:19 Oxygen Flow Rate 2 Oxygen Delivery Method Nasal Cannula - Constitutional General appearance: Present: average body habitus. Absent: acute distress - Head Head exam: Present: atraumatic - Eye Eye exam: Present: EOMI - ENT ENT exam: Present: mucous membranes moist - Neck Neck exam: Absent: tenderness - Respiratory Respiratory exam: Present: clear - Cardiovascular Cardiovascular exam: Present: RRR. Absent: systolic murmur - GI/Abdominal GI/Abdominal exam: Present: hypoactive bowel sounds, soft. Absent: tenderness - Back Exam Back exam: Present: CVA tenderness (R) (mild to moderate), vertebral tenderness (mild to moderate at L1) - Neurological Exam Neurological exam: Absent: oriented X3 - Psychiatric Psychiatric exam: Absent: anxious, depressed - Allied Health Notes Allied health notes reviewed: nursing - Lab Labs: Laboratory Last Values WBC 8.5 X 10^3uL (3.9-10.7) 04/23/17 10:20 RBC 4.87 X 10^6uL (4.20-6.10) 04/23/17 10:20 Hgb 11.5 g/dL (12.0-16.0) L 04/23/17 10:20 Hct 35.2 % (36.0-48.0) L 04/23/17 10:20 MCV 72.2 fL (80.0-100.0) L 04/23/17 10:20 MCH 23.6 pg (29.0-35.0) L 04/23/17 10:20 MCHC 32.8 g/dL (32.0-36.0) 04/23/17 10:20 RDW 20.1 % (11.5-14.5) H D 04/23/17 10:20 Plt Count 267 X 10^3uL (130-440) 04/23/17 10:20 MPV 7.1 fL (7.4-10.4) L 04/23/17 10:20 Neutrophils % 73.6 % (54.0-75.0) 04/23/17 10:20 Lymphocytes % 15.4 % (20.0-40.0) L 04/23/17 10:20 Eosinophils % 0.8 % (0.0-6.0) 04/23/17 10:20 Basophils % 0.6 % (0.0-2.0) 04/23/17 10:20 Neutrophils # 6.2 X 10^3uL (2.6-6.7) 04/23/17 10:20 Lymphocytes # 1.3 X 10^3uL (0.8-3.8) 04/23/17 10:20 Monocytes 9.6 % (2.0-10.0) 04/23/17 10:20 Monocytes # 0.8 X 10^3uL (0.2-1.0) 04/23/17 10:20 Eosinophils # 0.1 X 10^3uL (0.0-0.4) 04/23/17 10:20 Basophils # 0.1 X 10^3uL (0.0-0.1) 04/23/17 10:20 Sodium 140 mmol/L (137-145) 04/23/17 10:20 Potassium 3.4 mmol/L (3.5-5.1) L 04/23/17 10:20 Chloride 103 mmol/L (98-107) 04/23/17 10:20 Carbon Dioxide 24 mmol/L (22-30) 04/23/17 10:20 BUN 13 mg/dL (7-17) 04/23/17 10:20 Creatinine 0.6 mg/dL (0.5-1.0) 04/23/17 10:20 GFR Calculation > 60 mL/min 04/23/17 10:20 Glucose 112 mg/dL (70-100) H 04/23/17 10:20 Calcium 9.2 mg/dL (8.4-10.2) 04/23/17 10:20 Urine Color Yellow 04/23/17 11:19 Urine Appearance Cloudy A 04/23/17 11:19 Urine pH 6.0 (5-7) 04/23/17 11:19 Ur Specific [place] 1.030 (0.001-1.035) 04/23/17 11:19 Urine Protein 30mg/dl (1+) (NEG - TRACE) A 04/23/17 11:19 Urine Ketones Negative (NEGATIVE) 04/23/17 11:19 Urine Blood Trace (NEGATIVE) A 04/23/17 11:19 Urine Nitrate Negative (NEGATIVE) 04/23/17 11:19 Urine Bilirubin Negative (NEGATIVE) 04/23/17 11:19 Urine Urobilinogen 0.2mg/dl (normal) (NEG-1mg/dL) 04/23/17 11:19 Ur Leukocyte Esterase Trace (NEGATIVE) 04/23/17 11:19 Urine RBC None seen (0-5/hpf) 04/23/17 11:19 Urine WBC None seen (0-4/hpf) 04/23/17 11:19 Ur Squamous Epith Cells None seen (<= 15/hpf) 04/23/17 11:19 Amorphous Sediment >50%/lpf (Up to 25%) A 04/23/17 11:19 Urine Bacteria None seen (<10/hpf) 04/23/17 11:19 Urine Mucus None seen (Up to 25%) 04/23/17 11:19 Urine Glucose Normal (NEGATIVE) 04/23/17 11:19 (1) Fall at home Qualifiers: Encounter type: subsequent encounter Qualified Code(s): W19.XXXD - Unspecified fall, subsequent encounter; Y92.099 - Unspecified place in other non -institutional residence as the place of occurrence of the external cause (2) Fracture of transverse process of lumbar vertebra Qualifiers: Encounter type: subsequent encounter Fracture healing: with routine healing Qualified Code(s): S32.008D - Other fracture of unspecified lumbar vertebra, subsequent encounter for fracture with routine healing (4) Ribs, multiple fractures Qualifiers: Encounter type: subsequent encounter Fracture type: closed Laterality: right Fracture healing: with routine healing Qualified Code(s): S22.41XD - Multiple fractures of ribs, right side, subsequent encounter for fracture with routine healing
[2017-04-26] MEDS: CYCLOBENZAPRINE HCL 10 MG TABLET PO PRN (08:32)
--- NOTE | 2017-04-26 08:36 | DC SUMMARY: IM Note ---
Discharge Summary: IM/Peds Provider: Date of Admission: 04/23/17 Admitting Provider: MICHAEL LIRA MD Attending Provider: MICHAEL LIRA MD Discharging Provider: DENISE ROWLEY Primary Care Provider: Discharge Date: 04/26/17 - Diagnosis (1) Fall at home Status: Acute Qualifiers: Encounter type: subsequent encounter Qualified Code(s): W19.XXXD - Unspecified fall, subsequent encounter; Y92.099 - Unspecified place in other non -institutional residence as the place of occurrence of the external cause (2) Fracture of transverse process of lumbar vertebra Status: Acute Qualifiers: Encounter type: subsequent encounter Fracture healing: with routine healing Qualified Code(s): S32.008D - Other fracture of unspecified lumbar vertebra, subsequent encounter for fracture with routine healing (3) History of CVA with residual deficit Status: Chronic (4) Ribs, multiple fractures Status: Acute Qualifiers: Encounter type: subsequent encounter Fracture type: closed Laterality: right Fracture healing: with routine healing Qualified Code(s): S22.41XD - Multiple fractures of ribs, right side, subsequent encounter for fracture with routine healing (5) Weakness generalized Status: Chronic (6) Hyperlipidemia Status: Chronic (7) Hypertension Status: Chronic (8) Hypothyroidism (acquired) Status: Chronic - Time Spent with Patient Total time spent providing and/or coordinating discharge services: Discharge Overall discharge status: patient is progressing back to baseline Disposition: [facility] SWING BED Discharge Summary Data - Medication History Medication History: Home Medications Calcium Carbonate [Tums X-Str] 600 mg PO BID 04/23/17 Colesevelam HCl [Welchol] 625 mg PO QID 04/23/17 Levothyroxine [Synthroid*] 88 mcg PO DAILY 04/23/17 Non-Formulary Medication 10 mg PO HS 04/23/17 Omeprazole [Omeprazole] 20 mg PO BID 04/23/17 aspirin EC [Aspirin EC*] 81 mg PO DAILY 04/23/17 Acetaminophen [Tylenol] 650 mg PO TID PRN 04/24/17 Azelastine HCl Nasal [Astelin Nasal [place]*] 1 spr NASAL BID 04/24/17 Cyclobenzaprine HCl [Flexeril*] 10 mg PO TID PRN 04/24/17 Docusate Sodium [Colace*] 100 mg PO BID 04/24/17 Duloxetine [Cymbalta*] 30 mg PO DAILY 04/24/17 Gabapentin [Neurontin*] 300 mg PO BID 04/24/17 HYDROmorphone HCL [Dilaudid] 0.25 mg IV Q4H PRN 04/24/17 Hydrocodone/Acetaminophen [[place] 5-325 Tablet] 1 tab PO QID PRN 04/24/17 Ibuprofen [Motrin*] 400 mg PO Q8H PRN 04/24/17 Levothyroxine [Synthroid*] 112 mcg PO DAILY 04/24/17 Ondansetron HCl [Zofran] 4 mg IV Q6H PRN 04/24/17 Pantoprazole [Pantoprazole Sodium*] 40 mg PO BEFORE BRKFST/DINN 04/24/17 Polyethylene Glycol 3350 [Miralax*] 1 packet PO DAILY 04/24/17 Tizanidine HCl [Zanaflex] 2 - 4 mg PO HS PRN 04/24/17 oxyCODONE HCL IR [Oxy Ir*] 2.5 mg PO Q3H PRN 04/24/17 Inpatient Medications 04/23/17 13:11 Acetaminophen ER [Tylenol ER] 650 mg PO TID PRN 04/23/17 13:24 Ibuprofen [Motrin] 400 mg PO Q8H PRN 04/23/17 14:00 Polyethylene Glycol 3350 [miraLAX] 17 gm PO DAILY 04/23/17 17:00 Pantoprazole [Protonix] 40 mg PO BEFORE BRKFST/DINN 04/23/17 21:00 Docusate Sodium [Colace] 100 mg PO BID 04/24/17 08:35 Cyclobenzaprine HCl [Flexeril] 10 mg PO Q8H PRN 04/24/17 09:00 Duloxetine [Cymbalta] 30 mg PO DAILY Levothyroxine [Synthroid] 112 mcg PO DAILY aspirin EC [Ecotrin 81 mg] 81 mg PO DAILY 04/24/17 14:41 oxyCODONE HCL IR [Oxy Ir] 5 mg PO Q3H PRN 04/25/17 09:00 Enoxaparin Sodium [Lovenox] 30 mg SUBCUT DAILY 04/26/17 09:00 Calcitonin,[place] [Fortical] 1 spray NASAL DAILY Gabapentin [Neurontin] 300 mg PO BID Procedures and tests throughout hospitalization: Completed Lab Orders 04/23/17 11:19 urinalysis [UA W/ MICRO -CULTURE IF IND] [URINE] Urgent Pending Orders 04/23/17 10:33 Resuscitation Status Routine 04/23/17 13:11 Acetaminophen ER [Tylenol ER] 650 mg PO TID PRN 04/23/17 13:24 Ibuprofen [Motrin] 400 mg PO Q8H PRN 04/23/17 13:46 Admit: Inpatient Routine 04/23/17 14:00 Polyethylene Glycol 3350 [miraLAX] 17 gm PO DAILY 04/23/17 17:00 Pantoprazole [Protonix] 40 mg PO BEFORE BRKFST/DINN 04/23/17 21:00 Docusate Sodium [Colace] 100 mg PO BID 04/24/17 08:09 Occupation Therapy Eval and Treat [OT] Routine 04/24/17 08:35 Cyclobenzaprine HCl [Flexeril] 10 mg PO Q8H PRN 04/24/17 09:00 Duloxetine [Cymbalta] 30 mg PO DAILY Levothyroxine [Synthroid] 112 mcg PO DAILY aspirin EC [Ecotrin 81 mg] 81 mg PO DAILY 04/24/17 12:30 Physical Therapy Plan of Care [PT] Routine 04/24/17 14:41 oxyCODONE HCL IR [Oxy Ir] 5 mg PO Q3H PRN 04/24/17 21:23 Activity: Ambulate with Assist TID 04/24/17 21:24 SCD's [Sequential Compression Device] WHILE IN BED 04/25/17 09:00 Enoxaparin Sodium [Lovenox] 30 mg SUBCUT DAILY 04/26/17 09:00 Calcitonin,[place] [Fortical] 1 spray NASAL DAILY Gabapentin [Neurontin] 300 mg PO BID IM: Discharge Physical Exam - I&O/Vital Signs I&O: Intake & Output 04/25/17 04/26/17 04/26/17 21:59 05:59 13:59 Intake Total 1150 250 Output Total 700 450 Balance 450 -200 Weight 62 kg Intake: Oral 1150 250 Output: Urine 700 450 Other: Urine Appearance Clear Clear Urine Color Yellow Yellow Voiding Method Bedside Commode Incontinent # Voids 3 Vital Signs: Last Vital Signs Temp 36.9 C 04/26/17 06:19 Pulse 102 H 04/26/17 06:19 Resp 16 04/26/17 06:19 BP 129/65 04/26/17 06:19 Pulse Ox 92 04/26/17 06:19 Oxygen Flow Rate 2 Oxygen Delivery Method Nasal Cannula - Constitutional General appearance: Present: average body habitus. Absent: acute distress - Head Head exam: Present: atraumatic - Eye Eye exam: Present: EOMI - ENT ENT exam: Present: mucous membranes moist - Neck Neck exam: Absent: tenderness - Respiratory Respiratory exam: Present: clear - Cardiovascular Cardiovascular exam: Present: RRR. Absent: systolic murmur - GI/Abdominal GI/Abdominal exam: Present: hypoactive bowel sounds, soft. Absent: tenderness - Back Exam Back exam: Present: CVA tenderness (R) (mild to moderate), vertebral tenderness (mild to moderate at L1) - Neurological Exam Neurological exam: Absent: oriented X3 - Psychiatric Psychiatric exam: Absent: anxious, depressed - Allied Health Notes Allied health notes reviewed: nursing
[2017-04-26] MEDS: LEVOTHYROXINE 112 MCG TABLET PO SCH (08:55)
[2017-04-26] MEDS: ACETAMINOPHEN ER 650 MG TAB.SR.8HR PO PRN ×2 (08:55→22:38)
[2017-04-26] MEDS: DULOXETINE 30 MG CAPSULE.DR PO SCH (08:55)
[2017-04-26] MEDS: POLYETHYLENE GLYCOL 3350 17 GM POWD.PACK PO SCH (08:55)
[2017-04-26] MEDS: ENOXAPARIN SODIUM 30 MG/0.3 ML SYR SUBCUT SCH (08:55)
[2017-04-26] MEDS: DOCUSATE SODIUM 100 MG CAPSULE PO SCH ×2 (08:56→20:23)
[2017-04-26] MEDS: CALCITONIN,SALMON 1 SPRAY BOTTLE NASAL SCH (08:56)
[2017-04-26] MEDS: GABAPENTIN 300 MG CAPSULE PO SCH ×2 (08:56→20:22)
[2017-04-26] MEDS ORDERED: HOME MEDICATION LIST NEEDED 1 EA EACH MC ONE (09:00)
[2017-04-26] MEDS ORDERED: ACETAMINOPHEN 325 MG TABLET PO PRN (09:01)
[2017-04-26] MEDS ORDERED: ONDANSETRON HCL 4 MG/2 ML VIAL IV PRN (09:01)
[2017-04-26] MEDS ORDERED: IBUPROFEN 400 MG TABLET PO PRN (09:01)
[2017-04-26] MEDS: CHOLECALCIFEROL 1,000 UNIT CAPSULE PO SCH (09:25)
[2017-04-26] MEDS: [UNRECOGNIZED DRUG - REMARK] PO SCH ×4 (13:45→20:25)
[2017-04-26] MEDS ORDERED: MAGNESIUM HYDROXIDE 30 ML UDC PO ONE ×2 (14:22→16:00)
[2017-04-26 15:55] LABS: URINE APPEARANCE CLEAR; URINE COLOR YELLOW; URINE LEUKOCYTE ESTERASE NEGATIVE (NEGATIVE); URINE MUCUS NONE SEEN (Up to 25%); URINE NITRITE NEGATIVE (NEGATIVE); URINE RBC NONE SEEN (0-5/hpf); URINE SPECIFIC GRAVITY 1.015 (0.001-1.035); URINE SQUAMOUS EPITHELIAL CELL NONE SEEN (<= 15/hpf); URINE WBC NONE SEEN (0-4/hpf)
[2017-04-26 15:56] LABS: URINE BACTERIA NONE SEEN (<10/hpf); URINE BILIRUBIN NEGATIVE (NEGATIVE); URINE BLOOD TRACE (NEGATIVE); URINE GLUCOSE NORMAL (NEGATIVE); URINE KETONE NEGATIVE (NEGATIVE); URINE PH 5.5 (5-7); URINE PROTEIN NEGATIVE (NEG - TRACE); URINE UROBILINOGEN 0.2mg/dL (Normal) (NEG-1mg/dL)
[2017-04-26] MEDS ORDERED: PANTOPRAZOLE 40 MG TABLET PO SCH (17:00)
[2017-04-26] MEDS: CALCIUM CARBONATE 300 MG TAB.CHEW PO SCH (20:23)
[2017-04-26] MEDS: AZELASTINE HCL NASAL SCH (20:24)
[2017-04-27] MEDS: PANTOPRAZOLE 40 MG TABLET PO SCH ×2 (05:56→17:26)
[2017-04-27 06:11] LABS: IRON 24 ug/dL (37-170)
[2017-04-27 06:19] LABS: TOTAL IRON BINDING CAPACITY 390 ug/mL (250-400); TRANSFERRIN 262 mg/dL (206-381); TRANSFERRIN SATURATION 6 % (14-50)
[2017-04-27 06:47] LABS: FERRITIN 30 ng/mL (11-264)
[2017-04-27] MEDS: [UNRECOGNIZED DRUG - REMARK] PO SCH ×4 (08:12→21:16)
[2017-04-27] MEDS: CHOLECALCIFEROL 1,000 UNIT CAPSULE PO SCH (08:15)
[2017-04-27] MEDS: ACETAMINOPHEN ER 650 MG TAB.SR.8HR PO PRN ×2 (08:16→17:19)
[2017-04-27] MEDS: CALCIUM CARBONATE 300 MG TAB.CHEW PO SCH ×2 (08:16→21:23)
[2017-04-27] MEDS: CYCLOBENZAPRINE HCL 10 MG TABLET PO PRN ×2 (08:16→17:19)
[2017-04-27] MEDS: GABAPENTIN 300 MG CAPSULE PO SCH ×2 (08:19→21:23)
[2017-04-27] MEDS: DOCUSATE SODIUM 100 MG CAPSULE PO SCH ×2 (08:19→21:23)
[2017-04-27] MEDS: DULOXETINE 30 MG CAPSULE.DR PO SCH (08:19)
[2017-04-27] MEDS: ENOXAPARIN SODIUM 30 MG/0.3 ML SYR SUBCUT SCH (08:19)
[2017-04-27] MEDS: AZELASTINE HCL NASAL SCH ×2 (08:20→21:16)
[2017-04-27] MEDS: POLYETHYLENE GLYCOL 3350 17 GM POWD.PACK PO SCH ×2 (08:20→11:45)
[2017-04-27] MEDS: LEVOTHYROXINE 112 MCG TABLET PO SCH (08:20)
[2017-04-27] MEDS: CALCITONIN,SALMON 1 SPRAY BOTTLE NASAL SCH (08:20)
[2017-04-27] MEDS ORDERED: LEVOTHYROXINE 112 MCG TABLET PO SCH (09:00)
[2017-04-27] MEDS ORDERED: DULOXETINE 30 MG CAPSULE.DR PO SCH (09:00)
--- NOTE | 2017-04-27 10:44 | PROGRESS NOTE: IM APSO ---
Assessment and Plan - Date of Encounter Date of Encounter: 04/27/17 (1) Fall at home Status: Acute Current Visit: Yes (2) Fracture of transverse process of lumbar vertebra Status: Acute Assessment and plan: improving pain control, used gabapentin at home with benefit for chronic pain and resuming. Add miacalcin for OSP as well may provide some analgesia Current Visit: Yes (3) History of CVA with residual deficit Status: Chronic Current Visit: Yes (4) Ribs, multiple fractures Status: Acute Current Visit: Yes (5) Weakness generalized Status: Chronic Current Visit: No (6) Hyperlipidemia Status: Chronic Assessment and plan: may also be exacerbated by microcytic anemia with elevated RDW suggestive of iron defc, studies were sent and corroborate iron deficiency, starting oral iron but with constipation, may not be abl to titrate dose up and tolerate for 3 months to replace stores. Starting parenteral iron as well, should have retic count/iron/CBC check in 2-3 weeks and with constipation, may need bowel evaluation with Ba enema/flex sig or Cscope; defer to Dr. Quintero Current Visit: No (7) Hypertension Status: Chronic Current Visit: No (8) Hypothyroidism (acquired) Status: Chronic Assessment and plan: and compensated Current Visit: No (9) Chronic bronchitis, obstructive Status: Suspected Assessment and plan: likely from second hand smoke exposure, trial of inhalers Current Visit: Yes - Time Spent With Patient Total time spent with greater than 50% in coordination of care (as documented) at patient's floor/unit and/or counseling patient: 25 - 35 minutes IM: PN Subjective General: fatigue (but slept well.), no anxiety, no depression, no confusion, no fever, no chills HEENT: no headache Cardiovascular: no chest pain Respiratory: cough, sputum (notes chronic cough with some phlegm, states discussed with PCP in past but no treatment, notes worse in AM but persists throughout day, unable to expectorate phlegm but moist, lifelong nonsmoker but spouse was heavy smoker), no wheeze, no SOB Gastrointestinal: constipation, no abdominal pain Genitourinary: no incontinence, no dysuria Musculoskeletal: pain (low back and right posterior ribs, cramping in quality but able to position self in bed and ambulate some), no swelling Neurological: no numbness, no tingling, no limb weakness IM: PN Objective Exam - I&O/Vital Signs I&O: Intake & Output 04/26/17 04/27/17 04/27/17 21:59 05:59 13:59 Intake Total 850 200 Output Total 450 550 0 Balance 400 -350 0 Weight 61 kg Intake: Oral 850 200 Output: Urine 450 550 Stool 0 0 Other: Urine Appearance Clear Clear Clear Urine Color Yellow Yellow Yellow Voiding Method Bedside Commode Bedside Commode Bedside Commode # Voids 3 Vital Signs: Last Vital Signs Temp 36.7 C 04/26/17 17:49 Pulse 98 H 04/26/17 17:49 Resp 20 04/27/17 09:00 BP 121/67 04/26/17 17:49 Pulse Ox 96 04/27/17 09:18 Oxygen Flow Rate 2 Oxygen Delivery Method Nasal Cannula - Constitutional General appearance: Present: average body habitus. Absent: acute distress - Head Head exam: Present: atraumatic - Eye Eye exam: Present: EOMI - ENT ENT exam: Present: mucous membranes moist - Neck Neck exam: Absent: tenderness - Respiratory Respiratory exam: Present: clear (exp phase perhaps bit prolonged and intermittent polyphonic wheeze that abates with several breaths and cough) - Cardiovascular Cardiovascular exam: Present: RRR. Absent: systolic murmur - GI/Abdominal GI/Abdominal exam: Present: hypoactive bowel sounds, soft. Absent: tenderness - Back Exam Back exam: Present: CVA tenderness (R) (mild to moderate), vertebral tenderness (mild to moderate at L1) - Neurological Exam Neurological exam: Absent: oriented X3 - Psychiatric Psychiatric exam: Absent: anxious, depressed - Allied Health Notes Allied health notes reviewed: nursing - Lab Labs: Laboratory Last Values WBC 8.5 X 10^3uL (3.9-10.7) 04/23/17 10:20 RBC 4.87 X 10^6uL (4.20-6.10) 04/23/17 10:20 Hgb 11.5 g/dL (12.0-16.0) L 04/23/17 10:20 Hct 35.2 % (36.0-48.0) L 04/23/17 10:20 MCV 72.2 fL (80.0-100.0) L 04/23/17 10:20 MCH 23.6 pg (29.0-35.0) L 04/23/17 10:20 MCHC 32.8 g/dL (32.0-36.0) 04/23/17 10:20 RDW 20.1 % (11.5-14.5) H D 04/23/17 10:20 Plt Count 267 X 10^3uL (130-440) 04/23/17 10:20 MPV 7.1 fL (7.4-10.4) L 04/23/17 10:20 Neutrophils % 73.6 % (54.0-75.0) 04/23/17 10:20 Lymphocytes % 15.4 % (20.0-40.0) L 04/23/17 10:20 Eosinophils % 0.8 % (0.0-6.0) 04/23/17 10:20 Basophils % 0.6 % (0.0-2.0) 04/23/17 10:20 Neutrophils # 6.2 X 10^3uL (2.6-6.7) 04/23/17 10:20 Lymphocytes # 1.3 X 10^3uL (0.8-3.8) 04/23/17 10:20 Monocytes 9.6 % (2.0-10.0) 04/23/17 10:20 Monocytes # 0.8 X 10^3uL (0.2-1.0) 04/23/17 10:20 Eosinophils # 0.1 X 10^3uL (0.0-0.4) 04/23/17 10:20 Basophils # 0.1 X 10^3uL (0.0-0.1) 04/23/17 10:20 Sodium 140 mmol/L (137-145) 04/23/17 10:20 Potassium 3.4 mmol/L (3.5-5.1) L 04/23/17 10:20 Chloride 103 mmol/L (98-107) 04/23/17 10:20 Carbon Dioxide 24 mmol/L (22-30) 04/23/17 10:20 BUN 13 mg/dL (7-17) 04/23/17 10:20 Creatinine 0.6 mg/dL (0.5-1.0) 04/23/17 10:20 GFR Calculation > 60 mL/min 04/23/17 10:20 Glucose 112 mg/dL (70-100) H 04/23/17 10:20 Calcium 9.2 mg/dL (8.4-10.2) 04/23/17 10:20 Iron 24 ug/dL (37-170) L 04/27/17 05:50 TIBC 390 ug/mL (250-400) 04/27/17 05:50 Transferrin 262 mg/dL (206-381) 04/27/17 05:50 Transferrin % Sat 6 % (14-50) L 04/27/17 05:50 Ferritin 30 ng/mL (11-264) 04/27/17 05:50 Urine Color Yellow 04/26/17 15:30 Urine Appearance Clear 04/26/17 15:30 Urine pH 5.5 (5-7) 04/26/17 15:30 Ur Specific [place] 1.015 (0.001-1.035) 04/26/17 15:30 Urine Protein Negative (NEG - TRACE) 04/26/17 15:30 Urine Ketones Negative (NEGATIVE) 04/26/17 15:30 Urine Blood Trace (NEGATIVE) A 04/26/17 15:30 Urine Nitrate Negative (NEGATIVE) 04/26/17 15:30 Urine Bilirubin Negative (NEGATIVE) 04/26/17 15:30 Urine Urobilinogen 0.2mg/dl (normal) (NEG-1mg/dL) 04/26/17 15:30 Ur Leukocyte Esterase Negative (NEGATIVE) 04/26/17 15:30 Urine RBC None seen (0-5/hpf) 04/26/17 15:30 Urine WBC None seen (0-4/hpf) 04/26/17 15:30 Ur Squamous Epith Cells None seen (<= 15/hpf) 04/26/17 15:30 Amorphous Sediment >50%/lpf (Up to 25%) A 04/23/17 11:19 Urine Bacteria None seen (<10/hpf) 04/26/17 15:30 Urine Mucus None seen (Up to 25%) 04/26/17 15:30 Urine Glucose Normal (NEGATIVE) 04/26/17 15:30 (1) Fall at home Qualifiers: Encounter type: subsequent encounter Qualified Code(s): W19.XXXD - Unspecified fall, subsequent encounter; Y92.099 - Unspecified place in other non -institutional residence as the place of occurrence of the external cause (2) Fracture of transverse process of lumbar vertebra Qualifiers: Encounter type: subsequent encounter Fracture healing: with routine healing Qualified Code(s): S32.008D - Other fracture of unspecified lumbar vertebra, subsequent encounter for fracture with routine healing (4) Ribs, multiple fractures Qualifiers: Encounter type: subsequent encounter Fracture type: closed Laterality: right Fracture healing: with routine healing Qualified Code(s): S22.41XD - Multiple fractures of ribs, right side, subsequent encounter for fracture with routine healing
[2017-04-27] MEDS: ASCORBIC ACID 500 MG TABLET PO SCH ×2 (11:44→21:22)
[2017-04-27] MEDS: IRON SUCROSE COMPLEX 100 MG in NORMAL SALINE 100 ML IV SCH (11:44)
[2017-04-27] MEDS: FERROUS SULFATE 325 MG TABLET PO SCH ×2 (11:44→21:23)
[2017-04-27] MEDS: BUDESONIDE 0.5 MG/2 ML NEB INHALATION SCH (12:41)
[2017-04-27] MEDS ORDERED: IPRATROPIUM/ALBUTEROL 1 INH INHALER INHALATION SCH (13:00)
[2017-04-27] MEDS: IPRATROPIUM/ALBUTEROL 1 INH INHALER INHALATION SCH ×4 (13:35→21:17)
[2017-04-27] MEDS: BISACODYL 10 MG SUPP.RECT RECTAL PRN (17:25)
[2017-04-27] MEDS: POLYVINYL ALCOHOL 1.4% OPHTH 75 DROP/15 ML BTL OPHTHALMIC PRN (17:28)
[2017-04-28] MEDS: ACETAMINOPHEN ER 650 MG TAB.SR.8HR PO PRN (00:43)
[2017-04-28] MEDS: POLYVINYL ALCOHOL 1.4% OPHTH 75 DROP/15 ML BTL OPHTHALMIC PRN (00:44)
[2017-04-28] MEDS: PANTOPRAZOLE 40 MG TABLET PO SCH ×2 (05:40→17:39)
[2017-04-28] MEDS: CYCLOBENZAPRINE HCL 10 MG TABLET PO PRN (05:51)
[2017-04-28] MEDS: ASCORBIC ACID 500 MG TABLET PO SCH ×2 (09:36→20:26)
[2017-04-28] MEDS: DOCUSATE SODIUM 100 MG CAPSULE PO SCH ×2 (09:36→20:27)
[2017-04-28] MEDS: CHOLECALCIFEROL 1,000 UNIT CAPSULE PO SCH (09:36)
[2017-04-28] MEDS: [UNRECOGNIZED DRUG - REMARK] PO SCH ×4 (09:37→20:27)
[2017-04-28] MEDS: AZELASTINE HCL NASAL SCH ×2 (09:37→20:27)
[2017-04-28] MEDS: IPRATROPIUM/ALBUTEROL 1 INH INHALER INHALATION SCH ×4 (09:37→20:27)
[2017-04-28] MEDS: DULOXETINE 30 MG CAPSULE.DR PO SCH (09:37)
[2017-04-28] MEDS: BUDESONIDE 0.5 MG/2 ML NEB INHALATION SCH (09:38)
[2017-04-28] MEDS: POLYETHYLENE GLYCOL 3350 17 GM POWD.PACK PO SCH ×2 (09:38→09:42)
[2017-04-28] MEDS: CALCITONIN,SALMON 1 SPRAY BOTTLE NASAL SCH (09:38)
[2017-04-28] MEDS: FERROUS SULFATE 325 MG TABLET PO SCH ×2 (09:41→20:26)
[2017-04-28] MEDS: GABAPENTIN 300 MG CAPSULE PO SCH ×2 (09:41→20:26)
[2017-04-28] MEDS: ENOXAPARIN SODIUM 30 MG/0.3 ML SYR SUBCUT SCH (09:41)
[2017-04-28] MEDS ORDERED: MAGNESIUM HYDROXIDE 30 ML UDC ONE (09:47)
[2017-04-28] MEDS ORDERED: MAGNESIUM HYDROXIDE 30 ML UDC PO PRN (10:14)
[2017-04-28] MEDS: CALCIUM CARBONATE 300 MG TAB.CHEW PO SCH ×2 (10:16→20:28)
[2017-04-28] MEDS: IRON SUCROSE COMPLEX 100 MG in NORMAL SALINE 100 ML IV SCH (10:17)
[2017-04-28] MEDS: LEVOTHYROXINE 112 MCG TABLET PO SCH (13:11)
[2017-04-28] MEDS ORDERED: LIDOCAINE/EPI 1% 1:100,000 20 ML VIAL ONE (13:34)
[2017-04-28] MEDS: BISACODYL 10 MG SUPP.RECT RECTAL PRN (13:58)
[2017-04-28 18:56] VITALS: BP 141/75; PULSE 103; RESP 20; TEMP 98
[2017-04-29] MEDS: PANTOPRAZOLE 40 MG TABLET PO SCH (05:53)
[2017-04-29] MEDS: ACETAMINOPHEN ER 650 MG TAB.SR.8HR PO PRN (07:00)
[2017-04-29] MEDS: CHOLECALCIFEROL 1,000 UNIT CAPSULE PO SCH (08:21)
[2017-04-29] MEDS: DOCUSATE SODIUM 100 MG CAPSULE PO SCH (08:21)
[2017-04-29] MEDS: ASCORBIC ACID 500 MG TABLET PO SCH (08:22)
[2017-04-29] MEDS: CYCLOBENZAPRINE HCL 10 MG TABLET PO PRN (08:22)
[2017-04-29] MEDS: FERROUS SULFATE 325 MG TABLET PO SCH (08:23)
[2017-04-29] MEDS: DULOXETINE 30 MG CAPSULE.DR PO SCH (08:24)
[2017-04-29] MEDS: LEVOTHYROXINE 112 MCG TABLET PO SCH (08:24)
[2017-04-29] MEDS: [UNRECOGNIZED DRUG - REMARK] PO SCH ×2 (08:25→12:16)
[2017-04-29] MEDS: CALCITONIN,SALMON 1 SPRAY BOTTLE NASAL SCH (08:26)
[2017-04-29] MEDS: AZELASTINE HCL NASAL SCH (08:26)
[2017-04-29] MEDS: ENOXAPARIN SODIUM 30 MG/0.3 ML SYR SUBCUT SCH (08:27)
[2017-04-29] MEDS: CALCIUM CARBONATE 300 MG TAB.CHEW PO SCH (08:27)
[2017-04-29] MEDS: POLYETHYLENE GLYCOL 3350 17 GM POWD.PACK PO SCH (08:27)
[2017-04-29] MEDS: IRON SUCROSE COMPLEX 100 MG in NORMAL SALINE 100 ML IV SCH (08:32)
[2017-04-29] MEDS: IPRATROPIUM/ALBUTEROL 1 INH INHALER INHALATION SCH ×2 (09:51→14:21)
[2017-04-29] MEDS ORDERED: INHALER, ASSIST DEVICES 1 PKT EACH ONE (09:57)
[2017-04-29 10:17] VITALS: O2SAT 93
[2017-04-29] MEDS ORDERED: PANTOPRAZOLE 40 MG TABLET PO ONE (16:56)
[2017-04-29] MEDS ORDERED: GABAPENTIN 300 MG CAPSULE PO SCH (21:00)
== END 2017-04-29 15:47 | disposition swing bed (61) | DRG 552 ==
LOC: ER 09:22 → OBSVTOIN 10:59 → IN 10:59
PROVIDERS: ADMIT Family Medicine; ATTEND Family Medicine
DX: S32.018A Other fracture of first lumbar vertebra, initial encounter for closed fracture (principal); S22.41XA Multiple fractures of ribs, right side, initial encounter for closed fracture; R29.2 Abnormal reflex; W18.09XA Striking against other object with subsequent fall, initial encounter; Z91.81 History of falling; I69.354 Hemiplegia and hemiparesis following cerebral infarction affecting left non-dominant side; M48.06 Spinal stenosis, lumbar region; I10 Essential (primary) hypertension; E03.9 Hypothyroidism, unspecified; K21.9 Gastro-esophageal reflux disease without esophagitis; G47.34 Idiopathic sleep related nonobstructive alveolar hypoventilation; E55.9 Vitamin D deficiency, unspecified; R73.9 Hyperglycemia, unspecified; M85.89 Other specified disorders of bone density and structure, multiple sites; D55.9 Anemia due to enzyme disorder, unspecified; F41.8 Other specified anxiety disorders; E78.5 Hyperlipidemia, unspecified; Z79.899 Other long term (current) drug therapy
CPT/HCPCS: 36415; 72100; 72131; 80048; 81001; 82728; 83540; 84466; 85025; 94640; 94667; 96374; 96375; 99285; J1170; J1650; J1756; J2405

== ENCOUNTER 2017-04-26 09:00 | Inpatient (IN) | payer MEDICARE, OTHER ==
--- NOTE | 2017-04-26 10:19 | HISTORY & PHYSICAL ---
DATE OF ADMISSION TO SWING BED: 04/26/17 ATTENDING: Dr. Kevin Quintero. REASON FOR ADMISSION: Ongoing pain control and gait training and strengthening for deconditioning. HISTORY OF PRESENT ILLNESS: Briefly, the patient is a 81-year-old lady who awakened on the morning of admission, had lost her balance in the bathroom and fell against her right chest. She did not loose consciousness. She was brought to the emergency room and x-rays demonstrated fractures of the right lower ribs posteriorly as well as transverse processes. At that time she was discharged home but was unable to rest or get comfortable and returned to the emergency room and subsequently was admitted for pain control. Since admission her pain control and mobility has improved though is limited and she does continue to have gait instability. She has no fever, no cough, cold, congestion , no nausea, vomiting or abdominal pain, and no change in bowel habits. She does have a history of osteopenia and now with fractures of the 11th and 12th ribs posteriorly on the right as well as L1 vertebra on the right. She would be a candidate for vitamin D and likely Miacalcin which may help with fracture related pain as well as healing. PAST MEDICAL HISTORY: Notable for 1. Osteopenia. 2. Nocturnal hypoxemia. 3. GERD. 4. Hypertension. 5. Hypothyroidism. 6. Vitamin D deficiency. 7. Hiatal hernia. 8. Anxiety. 9. Spinal stenosis of the lumbar region. 10. Spinal stenosis of the cervical region status post surgery. 11. Major depression. 12. Dyslipidemia. 13. Lumbar radiculopathy, worse on the right than left. 14. History of prior ischemic stroke in 2014. 15. Impaired glucose tolerance. MEDICATIONS: Had included 75 mg every 2 weeks prior to admission. Aspirin 81 mg daily. Vitamin D3 1000 IU daily. Duloxetine 300 mg daily. Zetia 10 mg daily. Gabapentin 300 mg p.o. b.i.d. Levothyroxine 88 mcg daily. Prilosec 20 mg twice daily. NEW MEDICATIONS: Include Miacalcin 1 spray per naris alternating days. Aspirin 81 mg daily. Vitamin D3 1000 IU daily. Duloxetine 30 mg daily. Gabapentin 300 mg b.i.d. Welchol 300 mg nightly. Levothyroxine increased to 112 mcg daily. Protonix supplemented for omeprazole 40 mg in the morning. In addition, she is on Flexeril 10 mg q.8h p.r.n. Oxycodone 5 mg p.o. q.6h p.r.n. Colace 100 mg p.o. q.h.s. ALLERGIES: Include statins which cause myalgias. REVIEW OF SYSTEMS: Otherwise unremarkable. PHYSICAL EXAMINATION VITAL SIGNS: Showed temperature of 36.6-36.9, blood pressure 110-120/50s-60s with heart rates in the 70s to 80s, respiratory rate 16, satting 92% on 2 liters by nasal cannula, and she rates pain at 0-4/10. GENERAL: She is pleasant, no apparent distress. No jaundice, anemia, cyanosis , clubbing or lymphadenopathy. NECK: Supple. No masses noted. No bruits. RESPIRATORY: Clear to auscultation. CARDIAC: Shows regular rate and rhythm and no murmurs. ABDOMEN: Soft, nontender, but decreased bowel sounds. She has pain in the right lower ribs posteriorly and over her vertebra with ecchymoses noted. EXTREMITIES: There is no sacral or pedal edema. ASSESSMENT 1. Fracture of transverse process of the lumbar vertebrae. 2. Multiple rib fractures on the right posteriorly. 3. Gait instability with falls. 4. History of stroke with residual deficits. 5. Osteopenia now with fractures. 6. Gastroesophageal reflux disease. 7. Hypertension. 8. Hypothyroidism. PLAN: Will continue usual iteration of medications. Physical therapy and occupational therapy to improve functional mobility, gait training and strengthening. As well medications to help with pain control including resuming her gabapentin. Continue duloxetine. Adding oxycodone. Consideration of Lidoderm patch and concomitant use of Miacalcin. MTDD
[2017-04-29] MEDS ORDERED: LEVOTHYROXINE 88 MCG TABLET PO SCH (15:59)
[2017-04-29] MEDS ORDERED: COLESEVELAM HCL 625 MG PO SCH (15:59)
[2017-04-29] MEDS ORDERED: LEVOTHYROXINE 112 MCG TABLET PO SCH ×2 (15:59)
[2017-04-29] MEDS ORDERED: PANTOPRAZOLE 40 MG TABLET PO SCH ×2 (15:59→17:00)
[2017-04-29] MEDS ORDERED: CYCLOBENZAPRINE HCL 10 MG TABLET PO PRN (15:59)
[2017-04-29] MEDS ORDERED: CALCITONIN,SALMON 1 SPRAY BOTTLE NASAL SCH (15:59)
[2017-04-29] MEDS ORDERED: ACETAMINOPHEN ER 650 MG TAB.SR.8HR PO SCH (15:59)
[2017-04-29] MEDS ORDERED: BISACODYL 10 MG SUPP.RECT PR SCH (15:59)
[2017-04-29] MEDS ORDERED: ACETAMINOPHEN ER 650 MG TAB.SR.8HR PO PRN (15:59)
[2017-04-29] MEDS ORDERED: POLYETHYLENE GLYCOL 3350 17 GM POWD.PACK PO SCH ×3 (15:59)
[2017-04-29] MEDS ORDERED: DULOXETINE 30 MG CAPSULE.DR PO SCH ×2 (15:59)
[2017-04-29] MEDS ORDERED: ENOXAPARIN SODIUM 30 MG/0.3 ML SYR SUBCUT SCH (15:59)
[2017-04-29] MEDS ORDERED: IBUPROFEN 400 MG TABLET PO PRN ×2 (15:59)
[2017-04-29] MEDS ORDERED: HOME MEDICATION LIST NEEDED 1 EA EACH MC ONE (15:59)
[2017-04-29] MEDS ORDERED: ONDANSETRON HCL 4 MG/2 ML VIAL IV PRN (15:59)
[2017-04-29] MEDS ORDERED: GABAPENTIN 300 MG CAPSULE PO SCH ×3 (15:59→21:00)
[2017-04-29] MEDS ORDERED: AZELASTINE HCL NASAL SCH (15:59)
[2017-04-29] MEDS ORDERED: DOCUSATE SODIUM 100 MG CAPSULE PO SCH ×2 (15:59)
[2017-04-29] MEDS ORDERED: CALCIUM CARBONATE 300 MG TAB.CHEW PO SCH (15:59)
[2017-04-29] MEDS: COLESEVELAM HCL 625 MG PO SCH ×2 (16:33→20:36)
[2017-04-29] MEDS: PANTOPRAZOLE 40 MG TABLET PO SCH ×2 (16:41)
[2017-04-29] MEDS ORDERED: BISACODYL 10 MG SUPP.RECT RECTAL PRN (17:53)
--- NOTE | 2017-04-29 17:59 | PROGRESS NOTE: IM APSO ---
Assessment and Plan - Date of Encounter Date of Encounter: 04/29/17 (1) Fracture of transverse process of lumbar vertebra Status: Acute Assessment and plan: Slowly improving, but still unable to ambulate on her own safely. Current Visit: No (2) Ribs, multiple fractures Status: Acute Assessment and plan: R 11th and 12th. Slowly improving Current Visit: No (3) Fall at home Status: Acute Assessment and plan: Still at risk for recurrent falls. Continue PT/OT. Current Visit: No (4) History of CVA with residual deficit Status: Chronic Assessment and plan: Spastic L-sided residual coordination problem from CVA in 2014. Current Visit: No (5) DDD (degenerative disc disease), lumbar Status: Chronic Assessment and plan: Requires intermittent epidural steroid injections. Current Visit: No (6) Dysphagia as late effect of cerebrovascular accident (CVA) Status: Chronic Assessment and plan: Contributes to her chronic cough Current Visit: No (7) Lumbar radiculopathy, chronic Status: Chronic Assessment and plan: R sided. Also with some R-sided leg spasticity from cervical stenosis (S/P surgery for this). Current Visit: No - Time Spent With Patient Total time spent with greater than 50% in coordination of care (as documented) at patient's floor/unit and/or counseling patient: Estimated anticipated discharge: ? IM: PN Subjective General: fatigue, no depression, no fever, no chills HEENT: no headache Cardiovascular: other (R lower posterior thoracic pain) Respiratory: cough (chronic throat clearing and mild cough. No better on pulmicort nebs and Asteline nasal spray) Gastrointestinal: no abdominal pain Musculoskeletal: pain (lumbar (acute on chronic)) Neurological: no numbness, no tingling, no limb weakness IM: PN Objective Exam - I&O/Vital Signs I&O: Intake & Output 04/29/17 04/29/17 04/29/17 05:59 13:59 21:59 Weight 65 kg - Constitutional General appearance: Present: average body habitus. Absent: acute distress - ENT ENT exam: Present: mucous membranes moist - Respiratory Respiratory exam: Present: clear, rales (initially but cleared with deep breathing) - Cardiovascular Cardiovascular exam: Present: RRR. Absent: systolic murmur - GI/Abdominal GI/Abdominal exam: Present: soft. Absent: tenderness - Back Exam Back exam: Present: vertebral tenderness (in upper L spine) - Neurological Exam Neurological exam: Present: alert (oriented to month, not date) - Psychiatric Psychiatric exam: Present: normal mood - Skin Skin exam: Absent: pallor - Allied Health Notes Allied health notes reviewed: nursing, PT Quality Questions - VTE Prophylaxis Assessment VTE Present on Admission?: No Patient at risk for venous thromboembolism?: Yes VTE Risk Level: High Risk Pharmaceutical VTE prophylaxis contraindication reason: N/A- VTE prophylaxsis ordered Mechanical VTE prophylaxis contraindication reason: N/A- VTE prophylaxsis ordered (1) Fracture of transverse process of lumbar vertebra Qualifiers: (2) Ribs, multiple fractures Qualifiers: Encounter type: subsequent encounter Fracture type: closed Laterality: right Fracture healing: with routine healing Qualified Code(s): S22.41XD - Multiple fractures of ribs, right side, subsequent encounter for fracture with routine healing (3) Fall at home Qualifiers: Encounter type: subsequent encounter Qualified Code(s): W19.XXXD - Unspecified fall, subsequent encounter; Y92.099 - Unspecified place in other non -institutional residence as the place of occurrence of the external cause
[2017-04-29 19:34] LABS: URINE APPEARANCE CLEAR; URINE BACTERIA NONE SEEN (<10/hpf); URINE BILIRUBIN NEGATIVE (NEGATIVE); URINE BLOOD NEGATIVE (NEGATIVE); URINE COLOR YELLOW; URINE GLUCOSE NORMAL (NEGATIVE); URINE KETONE NEGATIVE (NEGATIVE); URINE LEUKOCYTE ESTERASE NEGATIVE (NEGATIVE); URINE MUCUS NONE SEEN (Up to 25%); URINE NITRITE NEGATIVE (NEGATIVE); URINE PROTEIN NEGATIVE (NEG - TRACE); URINE RBC NONE SEEN (0-5/hpf); URINE SPECIFIC GRAVITY 1.015 (0.001-1.035); URINE SQUAMOUS EPITHELIAL CELL 0-5/hpf (<= 15/hpf); URINE UROBILINOGEN NORMAL (NEG-1mg/dL); URINE WBC 0-4/hpf (0-4/hpf)
[2017-04-29] MEDS: GABAPENTIN 300 MG CAPSULE PO SCH (20:34)
[2017-04-29] MEDS: DOCUSATE SODIUM 100 MG CAPSULE PO SCH (20:34)
[2017-04-29] MEDS: ACETAMINOPHEN ER 650 MG TAB.SR.8HR PO SCH (20:34)
[2017-04-29] MEDS: AZELASTINE HCL NASAL SCH (20:35)
[2017-04-29] MEDS: CALCIUM CARBONATE 300 MG TAB.CHEW PO SCH (20:35)
[2017-04-30] MEDS: PANTOPRAZOLE 40 MG TABLET PO SCH (06:08)
[2017-04-30] MEDS: AZELASTINE HCL NASAL SCH ×2 (08:48→20:32)
[2017-04-30] MEDS: CALCITONIN,SALMON 1 SPRAY BOTTLE NASAL SCH (08:48)
[2017-04-30] MEDS: DULOXETINE 30 MG CAPSULE.DR PO SCH (08:49)
[2017-04-30] MEDS: DOCUSATE SODIUM 100 MG CAPSULE PO SCH ×2 (08:49→20:34)
[2017-04-30] MEDS: ACETAMINOPHEN ER 650 MG TAB.SR.8HR PO SCH ×3 (08:49→20:32)
[2017-04-30] MEDS: COLESEVELAM HCL 625 MG PO SCH ×4 (08:50→20:36)
[2017-04-30] MEDS: POLYETHYLENE GLYCOL 3350 17 GM POWD.PACK PO SCH (08:50)
[2017-04-30] MEDS: ENOXAPARIN SODIUM 30 MG/0.3 ML SYR SUBCUT SCH (08:50)
[2017-04-30] MEDS: LEVOTHYROXINE 112 MCG TABLET PO SCH (08:51)
[2017-04-30] MEDS: CALCIUM CARBONATE 300 MG TAB.CHEW PO SCH ×2 (08:51→20:36)
[2017-04-30] MEDS ORDERED: POLYVINYL ALCOHOL 1.4% OPHTH 75 DROP/15 ML BTL OPHTHALMIC PRN (08:53)
[2017-04-30] MEDS ORDERED: BISACODYL 10 MG SUPP.RECT RECTAL SCH (09:00)
[2017-04-30] MEDS: GABAPENTIN 300 MG CAPSULE PO SCH (20:36)
[2017-05-01] MEDS: PANTOPRAZOLE 40 MG TABLET PO SCH (06:07)
[2017-05-01] MEDS: COLESEVELAM HCL 625 MG PO SCH ×4 (08:12→21:29)
[2017-05-01] MEDS: DOCUSATE SODIUM 100 MG CAPSULE PO SCH ×2 (08:12→20:10)
[2017-05-01] MEDS: LEVOTHYROXINE 112 MCG TABLET PO SCH (08:13)
[2017-05-01] MEDS: DULOXETINE 30 MG CAPSULE.DR PO SCH (08:13)
[2017-05-01] MEDS: ACETAMINOPHEN ER 650 MG TAB.SR.8HR PO SCH ×3 (08:13→20:06)
[2017-05-01] MEDS: CALCITONIN,SALMON 1 SPRAY BOTTLE NASAL SCH (08:14)
[2017-05-01] MEDS: AZELASTINE HCL NASAL SCH ×2 (08:14→20:10)
[2017-05-01] MEDS: POLYETHYLENE GLYCOL 3350 17 GM POWD.PACK PO SCH (08:14)
[2017-05-01] MEDS: ENOXAPARIN SODIUM 30 MG/0.3 ML SYR SUBCUT SCH (08:14)
[2017-05-01] MEDS: CALCIUM CARBONATE 300 MG TAB.CHEW PO SCH ×2 (08:21→20:10)
--- NOTE | 2017-05-01 08:59 | PROGRESS NOTE: IM APSO ---
Assessment and Plan - Date of Encounter Date of Encounter: 05/01/17 (1) Fracture of transverse process of lumbar vertebra Status: Acute Assessment and plan: Slowly improving, but still unable to ambulate on her own safely. Nearly off of the oxycodone now. Her nasal calcitonin may be helping to speed healing of her fractures Current Visit: No (2) Ribs, multiple fractures Status: Acute Assessment and plan: R 11th and 12th. Pain significantly better.. Current Visit: No (3) Fall at home Status: Acute Assessment and plan: Still at risk for recurrent falls. Continue PT/OT. Current Visit: No (4) History of CVA with residual deficit Status: Chronic Assessment and plan: Spastic L-sided residual coordination problem from CVA in 2014. Her initial trial of Botox about a month ago was helpful in decreasing her spasticity in both legs. I anticipate that Dr. Fung will repeat that. Current Visit: No (5) DDD (degenerative disc disease), lumbar Status: Chronic Current Visit: No (6) Dysphagia as late effect of cerebrovascular accident (CVA) Status: Chronic Current Visit: No (7) Lumbar radiculopathy, chronic Status: Chronic Assessment and plan: R sided. Also with some R-sided leg spasticity from cervical stenosis (S/P surgery for this). Current Visit: No (8) Iron deficiency anemia Status: Acute Assessment and plan: etiology unclear. Still need to collect a stool for Hemoccult analysis. her last colonoscopy was on 09/21/09. Current Visit: Yes - Time Spent With Patient Total time spent with greater than 50% in coordination of care (as documented) at patient's floor/unit and/or counseling patient: Estimated anticipated discharge: 05/05/17 IM: PN Subjective General: fatigue (but much improved), no depression, no fever, no chills HEENT: no headache Cardiovascular: other (R lower posterior thoracic pain) Respiratory: cough (chronic throat clearing and mild cough. slightly better on Asteline nasal spray. Trial of Pulmicort nebulizer did not help) Gastrointestinal: no abdominal pain Musculoskeletal: pain (lumbar (acute on chronic) Much improved. Only took 1 oxycodone yesterday. Otherwise controlled on extended release Tylenol 650 mg 3 times a day) Neurological: no numbness, no tingling, no limb weakness IM: PN Objective Exam - I&O/Vital Signs I&O: Intake & Output 04/30/17 05/01/17 05/01/17 21:59 05:59 13:59 Intake Total 487 150 Output Total 150 90 Balance 337 60 Intake: Oral 487 150 Output: Urine 150 90 Other: Urine Appearance Clear Clear Urine Color Yellow Yellow Stool Size Small Stool Characteristics Green Voiding Method Toilet Toilet # Voids 1 1 # Bowel Movements 2 Vital Signs: Last Vital Signs Temp 36.9 C 05/01/17 06:08 Pulse 92 H 05/01/17 06:08 Resp 14 05/01/17 06:08 BP 155/88 05/01/17 06:08 Pulse Ox 94 04/30/17 18:43 Oxygen Flow Rate 1 Oxygen Delivery Method Nasal Cannula - Constitutional General appearance: Present: average body habitus. Absent: acute distress - ENT ENT exam: Present: mucous membranes moist - Respiratory Respiratory exam: Present: clear, rhonchi (on the left with deep inspiration). Absent: rales - Cardiovascular Cardiovascular exam: Present: RRR. Absent: systolic murmur - GI/Abdominal GI/Abdominal exam: Present: soft. Absent: tenderness - Back Exam Back exam: Present: vertebral tenderness (in upper L spine. Much improved) - Neurological Exam Neurological exam: Present: oriented X3 - Psychiatric Psychiatric exam: Present: normal mood - Skin Skin exam: Absent: pallor - Allied Health Notes Allied health notes reviewed: nursing, PT, social work - Lab Labs: Laboratory Last Values Urine Color Yellow 04/29/17 15:59 Urine Appearance Clear 04/29/17 15:59 Urine pH 7.0 (5-7) 04/29/17 15:59 Ur Specific [place] 1.015 (0.001-1.035) 04/29/17 15:59 Urine Protein Negative (NEG - TRACE) 04/29/17 15:59 Urine Ketones Negative (NEGATIVE) 04/29/17 15:59 Urine Blood Negative (NEGATIVE) 04/29/17 15:59 Urine Nitrate Negative (NEGATIVE) 04/29/17 15:59 Urine Bilirubin Negative (NEGATIVE) 04/29/17 15:59 Urine Urobilinogen Normal (NEG-1mg/dL) 04/29/17 15:59 Ur Leukocyte Esterase Negative (NEGATIVE) 04/29/17 15:59 Urine RBC None seen (0-5/hpf) 04/29/17 15:59 Urine WBC 0-4/hpf (0-4/hpf) 04/29/17 15:59 Ur Squamous Epith Cells 0-5/hpf (<= 15/hpf) 04/29/17 15:59 Urine Bacteria None seen (<10/hpf) 04/29/17 15:59 Urine Mucus None seen (Up to 25%) 04/29/17 15:59 Urine Glucose Normal (NEGATIVE) 04/29/17 15:59 (1) Fracture of transverse process of lumbar vertebra Qualifiers: (2) Ribs, multiple fractures Qualifiers: Encounter type: subsequent encounter Fracture type: closed Laterality: right Fracture healing: with routine healing Qualified Code(s): S22.41XD - Multiple fractures of ribs, right side, subsequent encounter for fracture with routine healing (3) Fall at home Qualifiers: Encounter type: subsequent encounter Qualified Code(s): W19.XXXD - Unspecified fall, subsequent encounter; Y92.099 - Unspecified place in other non -institutional residence as the place of occurrence of the external cause
[2017-05-01] MEDS: GABAPENTIN 300 MG CAPSULE PO SCH (20:10)
[2017-05-01] MEDS: ONDANSETRON ODT 4 MG TAB.RAPDIS PO PRN (21:29)
[2017-05-02] MEDS: PANTOPRAZOLE 40 MG TABLET PO SCH (06:27)
[2017-05-02] MEDS: POLYETHYLENE GLYCOL 3350 17 GM POWD.PACK PO SCH (08:06)
[2017-05-02] MEDS: ACETAMINOPHEN ER 650 MG TAB.SR.8HR PO SCH ×3 (08:07→20:20)
[2017-05-02] MEDS: DULOXETINE 30 MG CAPSULE.DR PO SCH (08:07)
[2017-05-02] MEDS: DOCUSATE SODIUM 100 MG CAPSULE PO SCH ×2 (08:07→20:20)
[2017-05-02] MEDS: CALCITONIN,SALMON 1 SPRAY BOTTLE NASAL SCH (08:08)
[2017-05-02] MEDS: LEVOTHYROXINE 112 MCG TABLET PO SCH (08:08)
[2017-05-02] MEDS: ENOXAPARIN SODIUM 30 MG/0.3 ML SYR SUBCUT SCH (08:08)
[2017-05-02] MEDS: AZELASTINE HCL NASAL SCH ×2 (08:08→20:21)
[2017-05-02] MEDS: CALCIUM CARBONATE 300 MG TAB.CHEW PO SCH ×2 (08:09→20:21)
[2017-05-02] MEDS: COLESEVELAM HCL 625 MG PO SCH ×4 (08:09→20:21)
--- NOTE | 2017-05-02 08:46 | PROGRESS NOTE: IM APSO ---
Assessment and Plan - Date of Encounter Date of Encounter: 05/02/17 (1) Fracture of transverse process of lumbar vertebra Status: Acute Assessment and plan: Slowly improving, but still unable to ambulate adequately on her own safely. Nearly off of the oxycodone now. Her nasal calcitonin may be helping to speed healing of her fractures Current Visit: No (2) Ribs, multiple fractures Status: Acute Assessment and plan: R 11th and 12th. Pain dramatically better.. Current Visit: No (3) Fall at home Status: Acute Assessment and plan: Still at risk for recurrent falls. Continue PT/OT. Current Visit: No (4) History of CVA with residual deficit Status: Chronic Assessment and plan: Spastic L-sided residual coordination problem from CVA in 2014. Her initial trial of Botox about a month ago was helpful in decreasing her spasticity in both legs. I anticipate that Dr. Fung will repeat that. Current Visit: No (5) DDD (degenerative disc disease), lumbar Status: Chronic Assessment and plan: Requires intermittent epidural steroid injections. Current Visit: No (6) Dysphagia as late effect of cerebrovascular accident (CVA) Status: Chronic Assessment and plan: Contributes to her chronic cough Current Visit: No (7) Lumbar radiculopathy, chronic Status: Chronic Assessment and plan: R sided. Also with some R-sided leg spasticity from cervical stenosis (S/P surgery for this). Current Visit: No (8) Iron deficiency anemia Status: Acute Assessment and plan: etiology unclear. Stool for Hemoccult analysis negative X2. Her last colonoscopy was on 09/21/09. Current Visit: Yes - Time Spent With Patient Total time spent with greater than 50% in coordination of care (as documented) at patient's floor/unit and/or counseling patient: Estimated anticipated discharge: 05/05/17 IM: PN Subjective General: fatigue (mainly in the morning, but much improved), no depression, no fever, no chills HEENT: no headache Cardiovascular: other (R lower posterior thoracic pain) Respiratory: cough (chronic throat clearing and mild cough. slightly better on Asteline nasal spray. Trial of Pulmicort nebulizer did not help) Gastrointestinal: no abdominal pain Musculoskeletal: pain (lumbar (acute on chronic) Much improved. Down to 1 oxycodone per day. Otherwise controlled on extended release Tylenol 650 mg 3 times a day) Neurological: no numbness, no tingling, no limb weakness IM: PN Objective Exam - I&O/Vital Signs I&O: Intake & Output 05/01/17 05/02/17 05/02/17 21:59 05:59 13:59 Intake Total 818 150 Output Total 700 400 Balance 118 -250 Intake: Oral 818 150 Output: Urine 700 400 Other: Urine Appearance Clear Clear Urine Color Yellow Yellow Stool Size Small Stool Characteristics Formed Brown Voiding Method Toilet Toilet # Voids 2 2 # Bowel Movements 1 Vital Signs: Last Vital Signs Temp 37.1 C 05/02/17 05:55 Pulse 103 H 05/02/17 05:55 Resp 17 05/02/17 05:55 BP 99/60 05/02/17 05:55 Pulse Ox 92 05/02/17 05:55 Oxygen Flow Rate 2 Oxygen Delivery Method Nasal Cannula - Constitutional General appearance: Present: average body habitus. Absent: acute distress - ENT ENT exam: Present: mucous membranes moist - Respiratory Respiratory exam: Present: clear, rhonchi (on the left with deep inspiration). Absent: rales - Cardiovascular Cardiovascular exam: Present: RRR. Absent: systolic murmur - GI/Abdominal GI/Abdominal exam: Present: soft. Absent: tenderness - Back Exam Back exam: Present: vertebral tenderness (Mild in upper L spine. Much improved) . Absent: CVA tenderness (R) (no tenderness to light tough on area of broken ribs.) - Neurological Exam Neurological exam: Present: oriented X3 - Psychiatric Psychiatric exam: Present: normal mood - Skin Skin exam: Absent: pallor - Allied Health Notes Allied health notes reviewed: nursing, OT, PT, social work - Lab Labs: Laboratory Last Values Urine Color Yellow 04/29/17 15:59 Urine Appearance Clear 04/29/17 15:59 Urine pH 7.0 (5-7) 04/29/17 15:59 Ur Specific [place] 1.015 (0.001-1.035) 04/29/17 15:59 Urine Protein Negative (NEG - TRACE) 04/29/17 15:59 Urine Ketones Negative (NEGATIVE) 04/29/17 15:59 Urine Blood Negative (NEGATIVE) 04/29/17 15:59 Urine Nitrate Negative (NEGATIVE) 04/29/17 15:59 Urine Bilirubin Negative (NEGATIVE) 04/29/17 15:59 Urine Urobilinogen Normal (NEG-1mg/dL) 04/29/17 15:59 Ur Leukocyte Esterase Negative (NEGATIVE) 04/29/17 15:59 Urine RBC None seen (0-5/hpf) 04/29/17 15:59 Urine WBC 0-4/hpf (0-4/hpf) 04/29/17 15:59 Ur Squamous Epith Cells 0-5/hpf (<= 15/hpf) 04/29/17 15:59 Urine Bacteria None seen (<10/hpf) 04/29/17 15:59 Urine Mucus None seen (Up to 25%) 04/29/17 15:59 Urine Glucose Normal (NEGATIVE) 04/29/17 15:59 (1) Fracture of transverse process of lumbar vertebra Qualifiers: (2) Ribs, multiple fractures Qualifiers: Encounter type: subsequent encounter Fracture type: closed Laterality: right Fracture healing: with routine healing Qualified Code(s): S22.41XD - Multiple fractures of ribs, right side, subsequent encounter for fracture with routine healing (3) Fall at home Qualifiers: Encounter type: subsequent encounter Qualified Code(s): W19.XXXD - Unspecified fall, subsequent encounter; Y92.099 - Unspecified place in other non -institutional residence as the place of occurrence of the external cause
[2017-05-02] MEDS: GABAPENTIN 300 MG CAPSULE PO SCH (20:20)
[2017-05-02] MEDS: ONDANSETRON ODT 4 MG TAB.RAPDIS PO PRN (21:25)
[2017-05-03] MEDS: CYCLOBENZAPRINE HCL 10 MG TABLET PO PRN (05:52)
[2017-05-03] MEDS: PANTOPRAZOLE 40 MG TABLET PO SCH (06:40)
[2017-05-03] MEDS: POLYETHYLENE GLYCOL 3350 17 GM POWD.PACK PO SCH (08:35)
[2017-05-03] MEDS: COLESEVELAM HCL 625 MG PO SCH ×4 (08:38→20:29)
[2017-05-03] MEDS: ACETAMINOPHEN ER 650 MG TAB.SR.8HR PO SCH ×3 (09:55→20:33)
[2017-05-03] MEDS: DOCUSATE SODIUM 100 MG CAPSULE PO SCH ×2 (09:55→20:33)
[2017-05-03] MEDS: ENOXAPARIN SODIUM 30 MG/0.3 ML SYR SUBCUT SCH (09:56)
[2017-05-03] MEDS: LEVOTHYROXINE 112 MCG TABLET PO SCH (09:56)
[2017-05-03] MEDS: AZELASTINE HCL NASAL SCH ×2 (09:56→20:33)
[2017-05-03] MEDS: DULOXETINE 30 MG CAPSULE.DR PO SCH (09:56)
[2017-05-03] MEDS: CALCIUM CARBONATE 300 MG TAB.CHEW PO SCH ×2 (09:56→20:33)
[2017-05-03] MEDS: CALCITONIN,SALMON 1 SPRAY BOTTLE NASAL SCH (09:56)
[2017-05-03 10:10] LABS: BASOPHIL# 0.1 X 10^3uL (0.0-0.1); EOSINOPHILS 2.5 % (0.0-6.0); EOSINOPHILS# 0.2 X 10^3uL (0.0-0.4); HEMATOCRIT 32.5 % (36.0-48.0); HEMOGLOBIN 10.5 g/dL (12.0-16.0); LYMPHOCYTES 27.9 % (20.0-40.0); LYMPHOCYTES# 1.7 X 10^3uL (0.8-3.8); MEAN CELL VOLUME 73.7 fL (80.0-100.0); MEAN CORPUS. HGB CONCENTRATION 32.3 g/dL (32.0-36.0); MEAN CORPUSCULAR HEMOGLOBIN 23.8 pg (29.0-35.0); MEAN PLATELET VOLUME 6.5 fL (7.4-10.4); MONOCYTES 7.8 % (2.0-10.0); MONOCYTES# 0.5 X 10^3uL (0.2-1.0); NEUTROPHILS 60.8 % (54.0-75.0); NEUTROPHILS# 3.6 X 10^3uL (2.6-6.7); PLATELET COUNT 383 X 10^3uL (130-440); RED BLOOD COUNT 4.42 X 10^6uL (4.20-6.10); WHITE BLOOD COUNT 6.1 X 10^3uL (3.9-10.7)
[2017-05-03 10:11] LABS: RED CELL DISTRIBUTION WIDTH 20.3 % (11.5-14.5)
[2017-05-03 10:14] LABS: ALBUMIN 3.6 g/dL (3.5-5.0); ALKALINE PHOSPHATASE 117 U/L (38-126); ALT 58 U/L (9-52); AST 41 U/L (14-36); BILIRUBIN, TOTAL 0.3 mg/dL (0.2-1.3); BLOOD UREA NITROGEN 16 mg/dL (7-17); CALCIUM 8.9 mg/dL (8.4-10.2); CHLORIDE 101 mmol/L (98-107); EST GLOMERULAR FILTRATION RATE > 60 mL/min; GLUCOSE 96 mg/dL (70-100); POTASSIUM 3.9 mmol/L (3.5-5.1); SODIUM 142 mmol/L (137-145); TOTAL PROTEIN 7.2 g/dL (6.3-8.2)
--- NOTE | 2017-05-03 15:53 | PROGRESS NOTE: IM SOAP ---
IM: PN Subjective General: fatigue (mainly in the morning, but much improved. Poor sleep last night 2/ N/V. ), no depression, no good appetite, no fever, no chills HEENT: no headache Cardiovascular: other (R lower posterior thoracic pain) Respiratory: cough (chronic throat clearing and mild cough. slightly better on Asteline nasal spray. Trial of Pulmicort nebulizer did not help), SOB (Mild SOB today. ) Gastrointestinal: nausea, vomiting (She had N/V overnight with 3 bouts of emesis. ), no abdominal pain Musculoskeletal: pain (lumbar (acute on chronic) Much improved. Down to 1 oxycodone per day. Otherwise controlled on extended release Tylenol 650 mg 3 times a day) Neurological: no numbness, no tingling, no limb weakness IM: PN Objective Exam - I&O/Vital Signs I&O: Intake & Output 05/03/17 05/03/17 05/03/17 05:59 13:59 21:59 Intake Total 150 Output Total 450 Balance -300 Intake: Oral 150 Output: Urine 200 Emesis 250 Other: Urine Appearance Clear Clear Urine Color Yellow Yellow Voiding Method Toilet Toilet Vital Signs: Last Vital Signs Temp 36.4 C 05/03/17 06:18 Pulse 95 H 05/03/17 06:18 Resp 14 05/03/17 09:00 BP 138/74 05/03/17 06:18 Pulse Ox 90 05/03/17 09:00 Oxygen Flow Rate 1 Oxygen Delivery Method Room Air - Constitutional General appearance: Present: average body habitus, cooperative. Absent: acute distress - Eye Eye exam: Present: EOMI, PERRL - ENT ENT exam: Present: mucous membranes moist - Respiratory Respiratory exam: Present: clear. Absent: accessory muscle use, rales - Cardiovascular Cardiovascular exam: Present: RRR. Absent: systolic murmur - GI/Abdominal GI/Abdominal exam: Present: normal bowel sounds, soft. Absent: tenderness - Extremities Exam Extremities exam: Absent: calf tenderness, edema - Back Exam Back exam: Present: vertebral tenderness (Mild in upper L spine. Much improved) . Absent: CVA tenderness (R) (no tenderness to light tough on area of broken ribs.) - Neurological Exam Neurological exam: Present: alert, oriented X3 - Psychiatric Psychiatric exam: Present: normal affect, normal mood - Skin Skin exam: Absent: pallor - Allied Health Notes Allied health notes reviewed: case management, nursing, OT, PT - Lab Labs: Laboratory Last Values WBC 6.1 X 10^3uL (3.9-10.7) 05/03/17 10:00 RBC 4.42 X 10^6uL (4.20-6.10) 05/03/17 10:00 Hgb 10.5 g/dL (12.0-16.0) L 05/03/17 10:00 Hct 32.5 % (36.0-48.0) L 05/03/17 10:00 MCV 73.7 fL (80.0-100.0) L 05/03/17 10:00 MCH 23.8 pg (29.0-35.0) L 05/03/17 10:00 MCHC 32.3 g/dL (32.0-36.0) 05/03/17 10:00 RDW 20.3 % (11.5-14.5) H 05/03/17 10:00 Plt Count 383 X 10^3uL (130-440) 05/03/17 10:00 MPV 6.5 fL (7.4-10.4) L 05/03/17 10:00 Neutrophils % 60.8 % (54.0-75.0) 05/03/17 10:00 Lymphocytes % 27.9 % (20.0-40.0) 05/03/17 10:00 Eosinophils % 2.5 % (0.0-6.0) 05/03/17 10:00 Basophils % 1.0 % (0.0-2.0) 05/03/17 10:00 Neutrophils # 3.6 X 10^3uL (2.6-6.7) 05/03/17 10:00 Lymphocytes # 1.7 X 10^3uL (0.8-3.8) 05/03/17 10:00 Monocytes 7.8 % (2.0-10.0) 05/03/17 10:00 Monocytes # 0.5 X 10^3uL (0.2-1.0) 05/03/17 10:00 Eosinophils # 0.2 X 10^3uL (0.0-0.4) 05/03/17 10:00 Basophils # 0.1 X 10^3uL (0.0-0.1) 05/03/17 10:00 Sodium 142 mmol/L (137-145) 05/03/17 10:00 Potassium 3.9 mmol/L (3.5-5.1) 05/03/17 10:00 Chloride 101 mmol/L (98-107) 05/03/17 10:00 Carbon Dioxide 28 mmol/L (22-30) 05/03/17 10:00 BUN 16 mg/dL (7-17) 05/03/17 10:00 Creatinine 0.6 mg/dL (0.5-1.0) 05/03/17 10:00 GFR Calculation > 60 mL/min 05/03/17 10:00 Glucose 96 mg/dL (70-100) 05/03/17 10:00 Calcium 8.9 mg/dL (8.4-10.2) 05/03/17 10:00 Total Bilirubin 0.3 mg/dL (0.2-1.3) 05/03/17 10:00 AST 41 U/L (14-36) H 05/03/17 10:00 ALT 58 U/L (9-52) H 05/03/17 10:00 Alkaline Phosphatase 117 U/L (38-126) 05/03/17 10:00 Total Protein 7.2 g/dL (6.3-8.2) 05/03/17 10:00 Albumin 3.6 g/dL (3.5-5.0) 05/03/17 10:00 Albumin/Globulin Ratio 1.0 05/03/17 10:00 Urine Color Yellow 04/29/17 15:59 Urine Appearance Clear 04/29/17 15:59 Urine pH 7.0 (5-7) 04/29/17 15:59 Ur Specific Vader 1.015 (0.001-1.035) 04/29/17 15:59 Urine Protein Negative (NEG - TRACE) 04/29/17 15:59 Urine Ketones Negative (NEGATIVE) 04/29/17 15:59 Urine Blood Negative (NEGATIVE) 04/29/17 15:59 Urine Nitrate Negative (NEGATIVE) 04/29/17 15:59 Urine Bilirubin Negative (NEGATIVE) 04/29/17 15:59 Urine Urobilinogen Normal (NEG-1mg/dL) 04/29/17 15:59 Ur Leukocyte Esterase Negative (NEGATIVE) 04/29/17 15:59 Urine RBC None seen (0-5/hpf) 04/29/17 15:59 Urine WBC 0-4/hpf (0-4/hpf) 04/29/17 15:59 Ur Squamous Epith Cells 0-5/hpf (<= 15/hpf) 04/29/17 15:59 Urine Bacteria None seen (<10/hpf) 04/29/17 15:59 Urine Mucus None seen (Up to 25%) 04/29/17 15:59 Urine Glucose Normal (NEGATIVE) 04/29/17 15:59 Assessment and Plan - Date of Encounter Date of Encounter: 05/03/17 (1) Nausea & vomiting Status: Acute Assessment and plan: She has had some nausea throughout hospital stay per nursing staff. She had 3 episodes emesis last night which was resolved with compazine. No further N/V today. CBC shows worsened anemia, but otherwise stable. Mildly elevated LFTs. U/A negative. Follow. Current Visit: Yes (2) Iron deficiency anemia Status: Acute Assessment and plan: Decreased H/H as compared to prior value. Hemoccult negative. Follow. Current Visit: Yes (3) Fracture of transverse process of lumbar vertebra Status: Acute Assessment and plan: Continue PT and pain management. Plan to be discharged home with additional night-time caregivers on Friday, May 05, 2017. Current Visit: No - Time Spent With Patient Total time spent with greater than 50% in coordination of care (as documented) at patient's floor/unit and/or counseling patient: 16-24 minutes Estimated anticipated discharge: 05/05/17 Quality Questions - VTE Prophylaxis Assessment VTE Present on Admission?: No Patient at risk for venous thromboembolism?: Yes VTE Risk Level: Moderate Risk Pharmaceutical VTE prophylaxis contraindication reason: N/A- VTE prophylaxsis ordered Mechanical VTE prophylaxis contraindication reason: N/A- VTE prophylaxsis ordered (2) Iron deficiency anemia Qualifiers: Iron deficiency anemia type: other iron deficiency Qualified Code(s): D50.8 - Other iron deficiency anemias (3) Fracture of transverse process of lumbar vertebra Qualifiers:
[2017-05-03 17:05] LABS: URINE APPEARANCE SLIGHTLY CLOUDY; URINE BACTERIA <10 ORGANISMS/hpf (<10/hpf); URINE BILIRUBIN NEGATIVE (NEGATIVE); URINE BLOOD TRACE (NEGATIVE); URINE COLOR YELLOW; URINE GLUCOSE NORMAL (NEGATIVE); URINE KETONE 5mg/dL (NEGATIVE); URINE LEUKOCYTE ESTERASE NEGATIVE (NEGATIVE); URINE MUCUS NONE SEEN (Up to 25%); URINE NITRITE NEGATIVE (NEGATIVE); URINE PROTEIN NEGATIVE (NEG - TRACE); URINE RBC NONE SEEN (0-5/hpf); URINE SQUAMOUS EPITHELIAL CELL NONE SEEN (<= 15/hpf); URINE UROBILINOGEN 0.2mg/dL (Normal) (NEG-1mg/dL)
[2017-05-03 17:07] LABS: URINE AMORPHOUS SEDIMENT UP TO 25%/lpf (Up to 25%)
[2017-05-03] MEDS: GABAPENTIN 300 MG CAPSULE PO SCH (20:33)
[2017-05-04] MEDS: PANTOPRAZOLE 40 MG TABLET PO SCH (06:32)
[2017-05-04] MEDS: ONDANSETRON ODT 4 MG TAB.RAPDIS PO PRN (09:35)
[2017-05-04] MEDS: ENOXAPARIN SODIUM 30 MG/0.3 ML SYR SUBCUT SCH (10:15)
[2017-05-04] MEDS: LEVOTHYROXINE 112 MCG TABLET PO SCH (10:15)
[2017-05-04] MEDS: DOCUSATE SODIUM 100 MG CAPSULE PO SCH ×2 (10:15→20:36)
[2017-05-04] MEDS: ACETAMINOPHEN ER 650 MG TAB.SR.8HR PO SCH ×3 (10:15→20:37)
[2017-05-04] MEDS: POLYETHYLENE GLYCOL 3350 17 GM POWD.PACK PO SCH (10:15)
[2017-05-04] MEDS: DULOXETINE 30 MG CAPSULE.DR PO SCH (10:15)
[2017-05-04] MEDS: COLESEVELAM HCL 625 MG PO SCH ×4 (10:17→20:42)
[2017-05-04] MEDS ORDERED: BISACODYL 5 MG TABLET PO ONE (10:21)
[2017-05-04] MEDS: AZELASTINE HCL NASAL SCH ×2 (10:24→20:39)
[2017-05-04] MEDS: CALCIUM CARBONATE 300 MG TAB.CHEW PO SCH ×2 (10:25→20:39)
[2017-05-04] MEDS: CALCITONIN,SALMON 1 SPRAY BOTTLE NASAL SCH (10:25)
[2017-05-04] MEDS ORDERED: BISACODYL 5 MG TABLET PO PRN (11:41)
[2017-05-04] MEDS: [UNRECOGNIZED DRUG - REMARK] PO SCH (16:16)
[2017-05-04] MEDS: GABAPENTIN 300 MG CAPSULE PO SCH (20:37)
[2017-05-05] MEDS ORDERED: CALCITONIN,SALMON 1 SPRAY BOTTLE NASAL SCH
[2017-05-05] MEDS ORDERED: AZELASTINE HCL NASAL SCH
[2017-05-05] MEDS ORDERED: CALCIUM CARBONATE 300 MG TAB.CHEW PO SCH
[2017-05-05] MEDS: CYCLOBENZAPRINE HCL 10 MG TABLET PO PRN (04:40)
[2017-05-05 06:12] VITALS: BP 129/72; PULSE 95; RESP 20; TEMP 97.9; O2SAT 96
[2017-05-05] MEDS: [UNRECOGNIZED DRUG - REMARK] PO SCH (06:26)
[2017-05-05 06:37] LABS: HEMATOCRIT 33.4 % (36.0-48.0); HEMOGLOBIN 10.8 g/dL (12.0-16.0); MEAN CELL VOLUME 73.2 fL (80.0-100.0); MEAN CORPUS. HGB CONCENTRATION 32.2 g/dL (32.0-36.0); MEAN CORPUSCULAR HEMOGLOBIN 23.6 pg (29.0-35.0); MEAN PLATELET VOLUME 6.7 fL (7.4-10.4); RED BLOOD COUNT 4.57 X 10^6uL (4.20-6.10); WHITE BLOOD COUNT 5.7 X 10^3uL (3.9-10.7)
[2017-05-05 06:49] LABS: RED CELL DISTRIBUTION WIDTH 20.2 % (11.5-14.5)
[2017-05-05] MEDS: DOCUSATE SODIUM 100 MG CAPSULE PO SCH (09:53)
[2017-05-05] MEDS: COLESEVELAM HCL 625 MG PO SCH (09:53)
[2017-05-05] MEDS: DULOXETINE 30 MG CAPSULE.DR PO SCH (09:54)
[2017-05-05] MEDS: CALCITONIN,SALMON 1 SPRAY BOTTLE NASAL SCH (09:55)
[2017-05-05] MEDS: ENOXAPARIN SODIUM 30 MG/0.3 ML SYR SUBCUT SCH (09:55)
[2017-05-05] MEDS: LEVOTHYROXINE 112 MCG TABLET PO SCH (09:56)
[2017-05-05] MEDS: ACETAMINOPHEN ER 650 MG TAB.SR.8HR PO SCH (09:57)
[2017-05-05] MEDS: CALCIUM CARBONATE 300 MG TAB.CHEW PO SCH (09:57)
[2017-05-05] MEDS: POLYETHYLENE GLYCOL 3350 17 GM POWD.PACK PO SCH (10:06)
[2017-05-05] MEDS: AZELASTINE HCL NASAL SCH (10:50)
--- NOTE | 2017-05-05 19:23 | DC SUMMARY: IM Note ---
Discharge Summary: IM/Peds Provider: Date of Admission: 04/29/17 Admitting Provider: MICHAEL LIRA MD Attending Provider: MICHAEL LIRA MD Discharging Provider: MICHAEL LIRA MD Primary Care Provider: Discharge Date: 05/05/17 Consults: 04/29/17 15:59 Nutrition/Dietary Consult [CONS] Routine Reason: Swingbed Admission Protocol - Diagnosis (1) Fracture of transverse process of lumbar vertebra Status: Acute Qualifiers: Encounter type: subsequent encounter Qualified Code(s): - (2) Ribs, multiple fractures Status: Acute Qualifiers: Encounter type: subsequent encounter Fracture type: closed Laterality: right Fracture healing: with routine healing Qualified Code(s): S22.41XD - Multiple fractures of ribs, right side, subsequent encounter for fracture with routine healing (3) Fall at home Status: Acute Qualifiers: Encounter type: subsequent encounter Qualified Code(s): W19.XXXD - Unspecified fall, subsequent encounter; Y92.099 - Unspecified place in other non -institutional residence as the place of occurrence of the external cause (4) History of CVA with residual deficit Status: Chronic (5) DDD (degenerative disc disease), lumbar Status: Chronic (6) Dysphagia as late effect of cerebrovascular accident (CVA) Status: Chronic (7) Lumbar radiculopathy, chronic Status: Chronic (8) Iron deficiency anemia Status: Acute Qualifiers: Iron deficiency anemia type: other iron deficiency Qualified Code(s) : D50.8 - Other iron deficiency anemias Hospital Course: After 3 days acute care stay this patient was transferred to rehab status on . She made gradual progress with physical therapy and occupational therapy. The pain from her fractures gradually diminished with the help of time and calcitonin nasal spray. By the time of discharge she was getting adequate relief with Tylenol 650 mg 3 times daily. I felt she was safe enough to go home with continued help from [employer] during the day. She also has arranged for some friends to stay at night temporarily. She should resume outpatient physical therapy at [facility], where she was going previously. She should also be doing hydrotherapy at [facility]. I will resume her usual medications. She was also noted to have some iron deficiency anemia of unclear etiology. Hemoccult tests 2 on the stool were negative. her hematocrit was slightly increased on the day of discharge her hematocrit was stable at 33 on the day of discharge. During her acute care stay she received 3 doses of IV iron sucrose. I elected not to continue her on oral iron, since she is prone to constipation. During hospitalization the constipation was controlled with a combination of Colace and MiraLAX supplemented with occasional Dulcolax. Now that she is weaned off of opioids she is not needing all of that regularly. Will continue just with the Colace on a regular basis 100 mg twice daily - Time Spent with Patient Total time spent providing and/or coordinating discharge services: Discharge - Patient/Caregiver Discharge Instructions Activity Level: as tolerated with walker Diet: diabetic diet Follow up: MICHAEL LIRA MD [Primary Care Provider] - 05/14/17 3:00 pm Disposition: HOME, SELF-CARE Discharge Summary Data - Medication History Medication History: Home Medications Calcium Carbonate [Tums X-Str*] 600 mg PO BID 04/23/17 aspirin EC [Aspirin EC*] 81 mg PO DAILY 04/23/17 Tizanidine HCl [Zanaflex] 2 - 4 mg PO HS PRN 04/24/17 Acetaminophen ER [Tylenol ER*] 650 mg PO TID PRN #0 tab.sr.8hr 04/26/17 Docusate Sodium [Colace*] 100 mg PO BID capsule 04/26/17 Duloxetine [Cymbalta*] 30 mg PO DAILY capsule. 04/26/17 Levothyroxine [Synthroid*] 112 mcg PO DAILY tablet 04/26/17 Omeprazole 20 mg PO BEFORE BRKFST/DINN 05/04/17 Gabapentin [Neurontin*] 300 mg PO HS #0 05/05/17 Polyethylene Glycol 3350 [Miralax*] 17 gm PO DAILY PRN powd.pack 05/05/17 Polyvinyl Alcohol 1.4% Ophth [Teargen*] 1 drop OPHTHALMIC PRN PRN #0 btl Procedures and tests throughout hospitalization: Completed Lab Orders 04/29/17 15:59 UA W/ MICRO -CULTURE IF IND [URINE] Routine 05/03/17 08:46 urinalysis [UA W/ MICRO -CULTURE IF IND] [URINE] Routine 05/03/17 10:00 CBC AUTO DIF, MDIF/RMOR IF IND [HEM] Routine cmp [COMPREHENSIVE METABOLIC PANEL] [CHEM] Routine 05/05/17 06:10 CBC WITHOUT A DIFFERENTIAL [HEM] AMDRAW Completed Microbiology Orders 05/01/17 11:00 OCCULT BLOOD (1-3 SAMPLES) [RM] 05/01/17 20:42 OCCULT BLOOD (1-3 SAMPLES) [RM] OCCULT 05/03/17 15:00 URINE CULTURE [RM] Routine Pending Orders 04/29/17 15:59 Admit: Swing Bed Routine VTE Prophylaxis Scoring/ Ordering Routine Activity: Ambulate with Assist TID Cover minor skin tears with DAILYPRN Titrate Oxygen TITRATE B/W 90-95% Vital Signs QSHIFT VS Underpresser Hand Consult [CM] Routine Occupation Therapy Eval and Treat [OT] Routine Physical Therapy Eval and Treatment [PT] Routine 04/30/17 00:07 CODE [Resuscitation Status] Routine 05/02/17 14:43 Occupational Therapy Plan of Care [OT] Routine 05/05/17 12:55 Discharge ONCE Labs on day of discharge: Labs from last 24 hours 05/05/17 06:10 WBC 5.7 RBC 4.57 Hgb 10.8 L Hct 33.4 L MCV 73.2 L MCH 23.6 L MCHC 32.2 RDW 20.2 H Plt Count 371 MPV 6.7 L IM: Discharge Physical Exam - I&O/Vital Signs I&O: Intake & Output 05/05/17 05/05/17 05/05/17 05:59 13:59 21:59 Intake Total 250 Output Total 325 Balance -75 Intake: Oral 250 Output: Urine 325 Other: Urine Appearance Clear Clear Urine Color Yellow Yellow Stool Size Small Stool Characteristics Formed Brown Voiding Method Toilet Toilet # Voids 4 Vital Signs: Last Vital Signs Temp 36.6 C 05/05/17 06:11 Pulse 95 H 05/05/17 06:11 Resp 20 05/05/17 09:00 BP 129/72 05/05/17 06:11 Pulse Ox 96 05/05/17 09:00 Oxygen Flow Rate 2 Oxygen Delivery Method Room Air - Constitutional General appearance: Present: average body habitus, cooperative. Absent: acute distress - Eye Eye exam: Present: EOMI, PERRL - ENT ENT exam: Present: mucous membranes moist - Respiratory Respiratory exam: Present: clear. Absent: accessory muscle use, rales - Cardiovascular Cardiovascular exam: Present: RRR. Absent: systolic murmur - GI/Abdominal GI/Abdominal exam: Present: normal bowel sounds, soft. Absent: tenderness - Extremities Exam Extremities exam: Absent: calf tenderness, edema - Back Exam Back exam: Present: vertebral tenderness (Mild in upper L spine. Much improved) . Absent: CVA tenderness (R) (no tenderness to light tough on area of broken ribs.) - Neurological Exam Neurological exam: Present: alert, oriented X3 - Psychiatric Psychiatric exam: Present: normal affect, normal mood - Skin Skin exam: Absent: pallor - Allied Health Notes Allied health notes reviewed: case management, nursing, OT, PT
== END 2017-05-05 12:55 | disposition home or self-care (01) | DRG 552 ==
LOC: IN 09:00 → UNDOADMIN 04-29 15:47 → UNDODISIN 05-05 12:55
PROVIDERS: ADMIT Family Medicine; ATTEND Family Medicine
DX: M54.5 Low back pain (principal); S32.018D Other fracture of first lumbar vertebra, subsequent encounter for fracture with routine healing; S22.41XD Multiple fractures of ribs, right side, subsequent encounter for fracture with routine healing; M85.89 Other specified disorders of bone density and structure, multiple sites; K21.9 Gastro-esophageal reflux disease without esophagitis; G47.34 Idiopathic sleep related nonobstructive alveolar hypoventilation; E03.9 Hypothyroidism, unspecified; E55.9 Vitamin D deficiency, unspecified; F41.8 Other specified anxiety disorders; M48.06 Spinal stenosis, lumbar region; R73.02 Impaired glucose tolerance (oral); I69.391 Dysphagia following cerebral infarction; D50.8 Other iron deficiency anemias; Z79.899 Other long term (current) drug therapy
CPT/HCPCS: 36415; 80053; 81001; 82270; 82728; 83540; 84466; 85025; 85027; 87086; 94640; 94667; J1650; J1756